=== PATIENT | male | born 1990 | race Caucasian/White ===

== ENCOUNTER 2018-12-30 09:32 | Emergency (ER) | payer OTHER ==
[2018-12-30 09:50] VITALS: BP 146/83; PULSE 89; RESP 18; TEMP 98
--- NOTE | 2018-12-30 10:11 | ED ---
General Adult HPI - General Chief complaint: Recheck/Abnormal Lab/Rx Stated complaint: [facility] - exposure Source: patient, RN notes reviewed Mode of arrival: ambulatory Limitations: no limitations - History of Present Illness Initial comments: 28-year-old male presents to the emergency department to get his blood drawn. Patient used an insulin lancet to collect blood for a glucose check. He states that someone at his work accidentally got stuck with the use lancet. His work wanted him to get blood work done because of this. Patient denies any injuries. Patient has no complaints at this time.Patient has no other complaints at this time including shortness of breath, chest pain, abdominal pain, nausea or vomiting, headache, or visual changes. - Related Data Allergies Allergy/AdvReac Type Severity Reaction Status Date / Time No Known Allergies Allergy Verified 12/30/18 09:50 Review of Systems ROS Statement: Those systems with pertinent positive or pertinent negative responses have been documented in the HPI. ROS Other: All systems not noted in ROS Statement are negative. Past Medical History Past Medical History: Diabetes Mellitus History of Any Multi-Drug Resistant Organisms: None Reported Past Surgical History: No Surgical Hx Reported Past Psychological History: Anxiety, Depression Smoking Status: Current every day smoker Past Alcohol Use History: Rare Past Drug Use History: None Reported General Exam Limitations: no limitations General appearance: alert, in no apparent distress Head exam: Present: atraumatic, normocephalic, normal inspection ENT exam: Present: normal exam, mucous membranes moist Neck exam: Present: normal inspection, full ROM. Absent: tenderness, meningismus, lymphadenopathy Respiratory exam: Present: normal lung sounds bilaterally. Absent: respiratory distress, wheezes, rales, rhonchi, stridor Cardiovascular Exam: Present: regular rate, normal rhythm, normal heart sounds. Absent: systolic murmur, diastolic murmur, rubs, gallop, clicks Neurological exam: Present: alert, oriented X3, CN II-XII intact Psychiatric exam: Present: normal affect, normal mood Course Vital Signs 12/30/18 09:48 Temperature 98.0 F Pulse Rate 89 Respiratory 18 Rate Blood Pressure 146/83 O2 Sat by Pulse 97 Oximetry Medical Decision Making - Medical Decision Making 28-year-old male presents for a blood draw after his insulin needle accidentally poked someone else. Patient was not the one exposed. Hep B, hep C, and HIV panels were drawn. Patient will follow-up with [facility] or primary care. Disposition Clinical Impression: Encounter for blood test Disposition: HOME SELF-CARE Condition: Good Additional Instructions: Please follow up with primary care in 1-2 days. Return here to the emergency department if you have any worsening symptoms. Is patient prescribed a controlled substance at d/c from ED?: No Referrals: Antonino Marrero MD [Primary Care Provider] - 1-2 days Time of Disposition: 10:26
[2018-12-30 17:47] LABS: Hepatitis B Core IgM Non-Reactive (Non-Reactive); Hepatitis C IgG Antibody Non-Reactive (Non-Reactive)
== END 2018-12-30 10:48 | disposition home or self-care (01) ==
LOC: EC 09:32
DX: Z01.89 Encounter for other specified special examinations (principal); F17.200 Nicotine dependence, unspecified, uncomplicated
CPT/HCPCS: 36415; 86701; 86704; 86705; 86803; 87340; 99283

== ENCOUNTER 2022-05-20 14:24 | Inpatient (IN) | payer BC ==
--- NOTE | 2022-05-20 14:50 | ED ---
Psych HPI - General Chief Complaint: Psychiatric Symptoms Stated Complaint: Mental health Eval Time Seen by Provider: 05/20/22 14:38 Source: patient, family Mode of arrival: ambulatory - History of Present Illness Initial Comments: Patient is a 31-year-old male with past medical history of schizotypal disorder who presents to the emergency department for psychiatric evaluation. Patient states he has had suicidal thoughts with plan and intention for the past couple days. He has plan to cut himself with a razor blade. Denies homicidal ideation. Denies auditory and visual hallucinations. Denies alcohol use. Admits to marijuana use. Denies other illicit drug use. Denies fever, chills, shortness of breath, upper respiratory symptoms, chest pain, abdominal pain, nausea, vomiting, and other concerns. Patient takes Abilify and Paxil daily. States his psychiatrist has plan to wean him off Paxil. - Related Data Home Medications Medication Instructions Recorded Confirmed ARIPiprazole [Abilify] 2 mg PO HS 05/20/22 05/20/22 ARIPiprazole [Abilify] 5 mg PO HS 05/20/22 05/20/22 Atorvastatin [Lipitor] 10 mg PO HS 05/20/22 05/20/22 PARoxetine HCL [Paxil] 60 mg PO DAILY 05/20/22 05/20/22 metFORMIN HCL [Glucophage] 500 mg PO HS 05/20/22 05/20/22 Allergies Allergy/AdvReac Type Severity Reaction Status Date / Time No Known Allergies Allergy Verified 05/20/22 16:07 Review of Systems ROS Statement: Those systems with pertinent positive or pertinent negative responses have been documented in the HPI. ROS Other: All systems not noted in ROS Statement are negative. Past Medical History Past Medical History: Diabetes Mellitus History of Any Multi-Drug Resistant Organisms: None Reported Past Surgical History: No Surgical Hx Reported Past Psychological History: Anxiety, Depression Smoking Status: Current every day smoker Past Alcohol Use History: Rare Past Drug Use History: Marijuana General Exam General appearance: alert, in no apparent distress Head exam: Present: atraumatic, normocephalic, normal inspection Eye exam: Present: normal appearance, PERRL, EOMI. Absent: scleral icterus, conjunctival injection, periorbital swelling Respiratory exam: Present: normal lung sounds bilaterally. Absent: respiratory distress, wheezes, rales, rhonchi, stridor Cardiovascular Exam: Present: regular rate, normal rhythm, normal heart sounds. Absent: systolic murmur, diastolic murmur, rubs, gallop, clicks GI/Abdominal exam: Present: soft, normal bowel sounds. Absent: distended, tenderness, guarding, rebound, rigid Neurological exam: Present: alert, oriented X3, CN II-XII intact Psychiatric exam: Present: normal affect, normal mood Skin exam: Present: warm, dry, intact, normal color. Absent: rash Course Vital Signs 05/20/22 05/20/22 14:30 19:24 Temperature 97.7 F 97.7 F Pulse Rate 82 80 Respiratory 18 16 Rate Blood Pressure 128/77 105/71 O2 Sat by Pulse 99 98 Oximetry Medical Decision Making - Medical Decision Making This is a 31-year-old male who presents for psychiatric evaluation and suicidal ideation with plan and intention. Thorough history and examination were performed. Breath alcohol is 0. Patient is cleared medically. He may be evaluated by our psychiatric services. Patient evaluated by psychiatric services. He will be admitted to our inpatient psychiatric floor. Dr. Oliver is my attending. - Lab Data Result diagrams: 05/21/22 13:57 05/21/22 13:57 Lab Results 05/20/22 05/20/22 Range/Units 15:35 20:13 Urine Opiates Screen Not Detected (NotDetected) Ur Oxycodone Screen Not Detected (NotDetected) Urine Methadone Screen Not Detected (NotDetected) Ur Propoxyphene Screen Not Detected (NotDetected) Ur Barbiturates Screen Not Detected (NotDetected) U Tricyclic Antidepress Not Detected (NotDetected) Ur Phencyclidine Scrn Not Detected (NotDetected) Ur Amphetamines Screen Not Detected (NotDetected) U Methamphetamines Scrn Not Detected (NotDetected) U Benzodiazepines Scrn Not Detected (NotDetected) Urine Cocaine Screen Not Detected (NotDetected) U Marijuana (THC) Screen Detected H (NotDetected) Coronavirus (PCR) Not Detected (Not Detectd) Disposition Clinical Impression: Suicidal ideation Disposition: ADMITTED IP TO THIS [facility] Condition: Good Decision Time: 19:07
[2022-05-20 16:08] LABS: Amphetamine Screen,Urine Not Detected (NotDetected); Barbiturate Screen,Urine Not Detected (NotDetected); Benzodiazepines Screen,Urine Not Detected (NotDetected); Cocaine Screen,Urine Not Detected (NotDetected); Methadone Screen, Urine Not Detected (NotDetected); Opiate Screen,Urine Not Detected (NotDetected); Oxycodone Screen, Urine Not Detected (NotDetected); Phencyclidine Screen,Urine Not Detected (NotDetected); Tricyclic Antidepressant,Urine Not Detected (NotDetected); Urn Cannabinoid Scrn Detected (NotDetected)
[2022-05-21] MEDS ORDERED: haloperidoL 5 MG TAB PO PRN
[2022-05-21] MEDS ORDERED: LORazepam 1 MG TAB PO PRN (00:02)
[2022-05-21] MEDS ORDERED: LORazepam 2 MG/ML INJ IM PRN (00:03)
[2022-05-21] MEDS ORDERED: MAG HYDROX/AL HYDROX/SIMETH 30 ML CUP PO PRN (04:00)
[2022-05-21] MEDS ORDERED: ACETAMINOPHEN TAB 325 MG TAB PO PRN (04:00)
[2022-05-21] MEDS ORDERED: HALOPERIDOL LACTATE 5 MG/ML 1 ML VIAL IM PRN (06:00)
[2022-05-21 07:42] LABS: Glucose,Whole Blood 125 mg/dL (70-110)
[2022-05-21] MEDS: NICOTINE 14MG/24HR PATCH TRANSDERM SCH (08:43)
[2022-05-21] MEDS ORDERED: MAGNESIUM HYDROXIDE 2,400 MG/10 ML CUP PO PRN (09:00)
[2022-05-21] MEDS ORDERED: PARoxetine 20 MG TAB PO SCH (09:00)
[2022-05-21] MEDS ORDERED: buPROPion XL 150 MG TAB.ER.24H PO STA (11:53)
[2022-05-21 12:53] LABS: Glucose,Whole Blood 109 mg/dL (70-110)
[2022-05-21 14:39] LABS: Basophils # (A) 0.1 k/uL (0-0.2); Basophils % (A) 1 %; Eosinophils # (A) 0.3 k/uL (0-0.7); Eosinophils % (A) 3 %; HCT 43.9 % (39.0-53.0); HGB 14.7 gm/dL (13.0-17.5); Lymphocytes # (A) 3.2 k/uL (1.0-4.8); Lymphocytes % (A) 34 %; MCHC 33.5 g/dL (31.0-37.0); MCV 86.6 fL (80.0-100.0); Mean Platelet Volume 7.9; Monocytes # (A) 0.3 k/uL (0-1.0); Monocytes % (A) 3 %; Neutrophils # (A) 5.4 k/uL (1.3-7.7); Neutrophils % (A) 57 %; Platelet Count 275 k/uL (150-450); RBC 5.07 m/uL (4.30-5.90); RDW 14.4 % (11.5-15.5); WBC 9.5 k/uL (3.8-10.6)
--- NOTE | 2022-05-21 14:47 | P.HP ---
Psychiatric H&P - . H&P Date: 05/21/22 History & Physical: Allergies Allergy/AdvReac Type Severity Reaction Status Date / Time No Known Allergies Allergy Verified 05/20/22 16:07 Vital Signs Temp 97.6 F 05/21/22 01:41 Pulse 72 05/21/22 01:41 Resp 16 05/21/22 01:41 BP 113/66 05/21/22 01:41 Pulse Ox 98 05/20/22 19:24 FiO2 Intake & Output 05/20/22 05/21/22 05/21/22 18:59 06:59 18:59 Weight 124.738 kg 123 kg Laboratory Last Values WBC 9.5 k/uL (3.8-10.6) 05/21/22 13:57 RBC 5.07 m/uL (4.30-5.90) 05/21/22 13:57 Hgb 14.7 gm/dL (13.0-17.5) 05/21/22 13:57 Hct 43.9 % (39.0-53.0) 05/21/22 13:57 MCV 86.6 fL (80.0-100.0) 05/21/22 13:57 MCH 29.0 pg (25.0-35.0) 05/21/22 13:57 MCHC 33.5 g/dL (31.0-37.0) 05/21/22 13:57 RDW 14.4 % (11.5-15.5) 05/21/22 13:57 Plt Count 275 k/uL (150-450) 05/21/22 13:57 MPV 7.9 05/21/22 13:57 Neutrophils % 57 % 05/21/22 13:57 Lymphocytes % 34 % 05/21/22 13:57 Monocytes % 3 % 05/21/22 13:57 Eosinophils % 3 % 05/21/22 13:57 Basophils % 1 % 05/21/22 13:57 Neutrophils # 5.4 k/uL (1.3-7.7) 05/21/22 13:57 Lymphocytes # 3.2 k/uL (1.0-4.8) 05/21/22 13:57 Monocytes # 0.3 k/uL (0-1.0) 05/21/22 13:57 Eosinophils # 0.3 k/uL (0-0.7) 05/21/22 13:57 Basophils # 0.1 k/uL (0-0.2) 05/21/22 13:57 POC Glucose (mg/dL) 109 mg/dL (70-110) 05/21/22 12:51 POC Glu [employer] ID Phylicia Abdalla 05/21/22 12:51 Urine Opiates Screen Not Detected (NotDetected) 05/20/22 15:35 Ur Oxycodone Screen Not Detected (NotDetected) 05/20/22 15:35 Urine Methadone Screen Not Detected (NotDetected) 05/20/22 15:35 Ur Propoxyphene Screen Not Detected (NotDetected) 05/20/22 15:35 Ur Barbiturates Screen Not Detected (NotDetected) 05/20/22 15:35 U Tricyclic Antidepress Not Detected (NotDetected) 05/20/22 15:35 Ur Phencyclidine Scrn Not Detected (NotDetected) 05/20/22 15:35 Ur Amphetamines Screen Not Detected (NotDetected) 05/20/22 15:35 U Methamphetamines Scrn Not Detected (NotDetected) 05/20/22 15:35 U Benzodiazepines Scrn Not Detected (NotDetected) 05/20/22 15:35 Urine Cocaine Screen Not Detected (NotDetected) 05/20/22 15:35 U Marijuana (THC) Screen Detected (NotDetected) H 05/20/22 15:35 Coronavirus (PCR) Not Detected (Not Detectd) 05/20/22 20:13 05/21/22 14:47 IDENTIFYING DATA: Patient is a single, employed, 31-year-old male with significant history of depression who presents to the hospital with worsening depression and suicidal ideation. HPI: Patient presented to the hospital on 05/20/2022, for worsening depression and suicidal ideation with multiple plans including cutting himself in the wrists, hanging himself, and stabbing himself with a screwdriver. The patient reports that his depression has been worsening over the past few weeks but has been bad over the past year. He reports numerous stressors including financial stressors, work related stressors, as well as concerns regarding his home as his insurance company is not likely to cover his home due to his porch not having rails and tree branches been present over his home. In regards to depressive symptoms, the patient does endorse significant symptoms of depression including a motivation, poor focus, psychomotor slowing, hopelessness, helplessness, anhedonia, and suicidal ideation. The patient denies any suicide attempts in the past. He reports that he did not attempt this time. He reports that the suicidal thoughts started initially in December however has been progressively worse. In regards to other mood symptoms, the patient denies any significant history of bipolar disorder. He reports no manic or hypomanic episodes. In regards to psychotic symptoms, the patient does report a history of hypnagogic and hypnopompic hallucinations or denies any other symptoms. He denies any auditory or visual hallucinations outside of that context and reports no delusions or paranoia. PAST PSYCHIATRIC HISTORY: Patient states that he has been previously diagnosed with "schizotypical disorder." The patient is currently on a home regimen of Abilify and Paxil however has tried Prozac in the past but that caused him to feel more suicidal. Patient denies any previous psychiatric hospitalizations. The patient sees a psychiatrist remotely through his [facility].Patient denies any history of suicide attempts in the past. PMH: Diabetes mellitus type 2 ALLERGIES: NO KNOWN DRUG ALLERGIES CHEMICAL DEPENDENCY HISTORY: The patient reports a half pack per day tobacco use. He denies any illicit drug use. He reports rare alcohol use. He reports using marijuana on weekends. FAMILY PSYCHIATRIC/SUBSTANCE USE HISTORY: The patient reports that his mother has depression and threats. He reports a brother that has bipolar disorder. SOCIAL HISTORY: Patient was born and raised in [place]. He is single, never , and has no children. He is an electrical assembler and graduated college at the [employer]. His hobbies and interests include hockey and video games. He reports that he is raised Buddhism however is nonpracticing. He denies any legal issues. MENTAL STATUS EXAM: General Appearance: Patient appears to be stated age is alert, directable, and attempts to cooperate. Patient appears to have slightly disheveled hygiene and grooming. Obese body habitus. Wearing glasses. Behavior: Patient is seated without any agitated behavior. Eye contact is appropriate. Speech: Patient's speech is fluent and nonpressured. Mood/Affect: Patient reports their mood is depressed, affect is congruent and constricted. Suicidality/Homicidality: Patient denies having any homicidal ideation intent or plan. Patient endorses suicidal ideation. Perceptions: Patient denies any visual hallucinations and denies any auditory hallucinations Though content/process: There is no evidence of any delusional thought content and thought process is linear and goal-directed. Memory and concentration: AOX3, grossly intact for the purposes of this session. Can spell "WORLD" backwards Judgment and insight: Fair STRENGTHS/WEAKNESSES: Strength is that the patient is employed, educated, and has support. Weakness is that the patient has numerous financial stressors. INTELLECT: average IMPRESSIONS: Major depressive disorder, recurrent, severe Tobacco use disorder PLAN: -Patient is admitted under voluntary status to MHU for stabilization of psychiatric symptoms and safety. Patient signed adult voluntary form and medication consent and is placed in patient's chart. -Medications : We will discontinue Paxil and Abilify. We'll start treatment with Zoloft 50 mg by mouth daily for depression/anxiety and Wellbutrin 150 mg by mouth daily for depression. -Ativan and Haldol PRN for agitation/aggression -Patient was counselled on substance abuse and desired to cut back on use -Patient was informed of the risks, benefits and side effects of the medication and patient verbally consented to taking the medications. Patient signed med consent form and was placed in chart. -Internal Medicine consult to perform medical evaluation and physical. -NRT - nicotine patch -SW on board for discharge planning. Encourage patient to participate in groups to work on coping skills.
[2022-05-21 14:52] LABS: ALT 52 U/L (4-49); AST 33 U/L (17-59); African American GFR (CKD) >90 (>60 ml/min/1.73 sqM); Albumin 4.7 g/dL (3.5-5.0); Alkaline Phosphatase 75 U/L (38-126); Anion Gap 8 mmol/L; Blood Urea Nitrogen 15 mg/dL (9-20); Calcium 9.5 mg/dL (8.4-10.2); Carbon Dioxide 29 mmol/L (22-30); Chloride 104 mmol/L (98-107); Glucose 126 mg/dL (74-99); Non-African American GFR(CKD) 89 (>60 ml/min/1.73 sqM); Potassium 4.4 mmol/L (3.5-5.1); Sodium 141 mmol/L (137-145); Total Bilirubin 0.5 mg/dL (0.2-1.3); Total Protein 6.8 g/dL (6.3-8.2)
[2022-05-21 17:59] LABS: Glucose,Whole Blood 100 mg/dL (70-110)
[2022-05-21 20:07] LABS: Glucose,Whole Blood 136 mg/dL (70-110)
[2022-05-21] MEDS: ATORVASTATIN 10 MG TAB PO SCH (20:14)
[2022-05-21] MEDS: metFORMIN 500 MG TAB PO SCH (20:14)
[2022-05-21] MEDS ORDERED: ARIPiprazole 5 MG TAB PO SCH (21:00)
[2022-05-21] MEDS ORDERED: ATORVASTATIN 10 MG TAB PO SCH (21:00)
[2022-05-21] MEDS ORDERED: ARIPiprazole 2 MG TAB PO SCH (21:00)
--- NOTE | 2022-05-22 01:02 | P.CONS ---
History of Present Illness - Reason for Consult Consult date: 05/21/22 - History of Present Illness Patient is a 31-year-old male with a PMH of syncopal disorder, type II DM, and tobacco abuse who presented to the emergency room with complaints of depression and suicidal ideation. The patient was admitted to the mental health and he was seen and evaluated. The patient reports that he has been having worsening depressive thoughts due to his multiple stressors in his life including his soc ial and financial well-being. He reported wanting to cut his wrists and bleed out of breath. He denied any physical complaints at the time of interview. Denies recent chest discomfort, shortness of breath, fever, chills, cough, nausea, vomiting, abdominal pain, diarrhea. Reports smoking half pack of cigarette daily. Also reported smoking marijuana daily. Denied alcohol use. Review of systems: Pertinent positives and negatives as discussed in HPI, a complete review of systems was performed and all other systems are negative. Physical examination: General: non toxic, no distress, appears at stated age, normal weight Derm: no unusual rashes/lesions, no unusual ecchymoses, warm, dry Head: atraumatic, normocephalic, symmetric Eyes: EOMI, no lid lag, anicteric sclera ENT: Nose and ears atraumatic, no thrush, no pharyngeal erythema Neck: trachea midline, supple Mouth: no lip lesion, mucus membranes moist Cardiovascular: S1S2 reg, no murmur, no edema Lungs: CTA bilateral, no rhonchi, no rales , no accessory muscle use Abdominal: soft, nontender to palpation, no guarding Ext: no gross muscle atrophy, no contractures, Neuro: No gross focal neuro deficits noted Psych: Alert, oriented, appropriate affect Assessment/plan Chronic conditions: Type II DM -Continue with home meds Tobacco abuse, marijuana abuse -Advised on importance of cessation Depression and suicidal ideation -As per psychiatry Thank you for allowing us to participate in the care of this patient. We will follow peripherally. Do not hesitate to contact us with questions. Someone can be reached from the [facility] hospitalist group at all hours of the day at [phone]. Past Medical History Past Medical History: Diabetes Mellitus History of Any Multi-Drug Resistant Organisms: None Reported Past Surgical History: No Surgical Hx Reported Past Anesthesia/Blood Transfusion Reactions: No Reported Reaction Past Psychological History: Anxiety, Depression Smoking Status: Current every day smoker Past Alcohol Use History: Rare Past Drug Use History: Marijuana - Past Family History Father Family Medical History: COPD Medications and Allergies Home Medications Medication Instructions Recorded Confirmed Type ARIPiprazole [Abilify] 2 mg PO HS 05/20/22 05/20/22 History ARIPiprazole [Abilify] 5 mg PO HS 05/20/22 05/20/22 History Atorvastatin [Lipitor] 10 mg PO HS 05/20/22 05/20/22 History PARoxetine HCL [Paxil] 60 mg PO DAILY 05/20/22 05/20/22 History metFORMIN HCL [Glucophage] 500 mg PO HS 05/20/22 05/20/22 History Allergies Allergy/AdvReac Type Severity Reaction Status Date / Time No Known Allergies Allergy Verified 05/20/22 16:07 Physical Exam Vitals: Vital Signs Temp Pulse Resp BP 05/21/22 01:41 97.6 F 72 16 113/66 Results CBC & Chem 7: 05/21/22 13:57 05/21/22 13:57 Labs: Abnormal Lab Results - Last 24 Hours (Table) 05/21/22 05/21/22 05/21/22 Range/Units 07:40 13:57 13:57 Glucose 126 H (74-99) mg/dL POC Glucose (mg/dL) 125 H (70-110) mg/dL Hemoglobin A1c 6.5 H (0.0-6.0) % ALT 52 H (4-49) U/L 05/21/22 Range/Units 20:05 Glucose (74-99) mg/dL POC Glucose (mg/dL) 136 H (70-110) mg/dL Hemoglobin A1c (0.0-6.0) % ALT (4-49) U/L
[2022-05-22 02:22] LABS: Chol/HDL Ratio 3.83 Ratio; LDL Cholesterol,Calculated 73.4 mg/dL (0.0-131.0)
--- NOTE | 2022-05-22 03:40 | CONS ---
CONSULTATION REASON FOR CONSULTATION: This is regarding diabetes and other medical issues, requested by Psychiatry. HISTORY OF PRESENT ILLNESS: This is a 31-year-old gentleman with a past medical history of diabetes mellitus type 2, controlled by oral medications, was admitted for psychiatric evaluation. There is no history of any fever, rigors, or chills. There is no history of any headache, loss of consciousness, or seizures. Accu-Chek, current Accu-Chek 125 and 109. PAST MEDICAL HISTORY: Reviewed and includes diabetes mellitus. HOME MEDICATIONS: Reviewed and include Paxil, dose and rest of medications are noted. ALLERGIES: None. FAMILY HISTORY: No history of heart disease or strokes in the family. SOCIAL HISTORY: History of THC and smoking. No alcohol intake. REVIEW OF SYSTEMS: A 14-point review of systems negative except as mentioned earlier. PHYSICAL EXAMINATION: VITAL SIGNS: Pulse 72, blood pressure NTD respirations 16. HEENT: Conjunctivae normal. Oral mucosa moist. NECK: No JVD. CARDIOVASCULAR: S1, S2 muffled. RESPIRATION: Breath sounds diminished at the bases. No rhonchi. No crackles. ABDOMEN: Soft. LEGS: No edema. NERVOUS SYSTEM: Moves all 4 limbs. Cranial nerves II through XII grossly intact. No focal motor or sensory deficit. No signs of cerebellar dysfunction. SKIN: No ulcer. JOINTS: No active deforming arthropathy. LABORATORY DATA: Reviewed. ASSESSMENT: 1. Diabetes mellitus, type 2. 2. Depression. 3. Anxiety. 4. History of tetrahydrocannabinol. RECOMMENDATIONS: This is a 31-year-old gentleman who presented with multiple medical issues. I recommend to continue current Accu-Chek and hemoglobin A1c. Resume the home medications. If the hemoglobin A1c is normal, the Accu-Chek can be discontinued, and diabetic diet. I recommend close followup with the primary physician. MMODL / IJN: [id number] / [id number]
[2022-05-22 07:39] LABS: Glucose,Whole Blood 126 mg/dL (70-110)
[2022-05-22] MEDS: buPROPion XL 150 MG TAB.ER.24H PO SCH (08:47)
[2022-05-22] MEDS ORDERED: SERTRALINE 50 MG TAB PO SCH (09:00)
[2022-05-22] MEDS: NICOTINE 14MG/24HR PATCH TRANSDERM SCH ×2 (09:03→14:54)
--- NOTE | 2022-05-22 11:38 | P.PN ---
Progress Note - Text Progress Note Date: 05/22/22 Interval History: Patient was seen wandering the hallways and was directable and agreeable to speak with business writer in the office. The patient reports that he is feeling better today. He is currently not reporting any suicidal or homicidal ideation, intention, and/or plan. He is not reporting any auditory or visual hallucinations. He is denying any paranoia or other delusions. Patient is not reporting any significant side effects to his medications and has been adherent. He denies any issues regarding his sleep or his appetite. He isn't agreement with further titration of Zoloft today. Mental Status Exam: General Appearance: Patient appears to be stated age is alert, directable, and cooperative. Obese body habitus. Wearing glasses. Behavior: Patient is calmly seated without any agitated behavior. Speech: Patient's speech is fluent and nonpressured. Mood/Affect: Mood is improving mildly, affect is congruent and constricted. Suicidality/Homicidality: Patient denies having any suicidal or homicidal ideation intent or plan. Perceptions: Patient denies any visual hallucinations and denies any auditory hallucinations Though content/process: There is no evidence of any delusional thought content and thought process is linear and goal-directed. Memory and concentration: AOX3, grossly intact for the purposes of this session Judgment and insight: Improving mildly Vital Signs Temp 97.8 F 05/22/22 07:03 Pulse 51 L 05/22/22 07:03 Resp 16 05/22/22 07:03 BP 111/58 05/22/22 07:03 Pulse Ox 98 05/22/22 07:03 FiO2 Laboratory Results - Last 24 Hours 05/21/22 05/21/22 05/21/22 12:51 13:57 13:57 WBC 9.5 RBC 5.07 Hgb 14.7 Hct 43.9 MCV 86.6 MCH 29.0 MCHC 33.5 RDW 14.4 Plt Count 275 MPV 7.9 Neutrophils % 57 Lymphocytes % 34 Monocytes % 3 Eosinophils % 3 Basophils % 1 Neutrophils # 5.4 Lymphocytes # 3.2 Monocytes # 0.3 Eosinophils # 0.3 Basophils # 0.1 Sodium 141 Potassium 4.4 Chloride 104 Carbon Dioxide 29 Anion Gap 8 BUN 15 Creatinine 1.10 Est GFR (CKD-EPI)AfAm >90 Est GFR (CKD-EPI)NonAf 89 Glucose 126 H POC Glucose (mg/dL) 109 POC Glu Legal Stenographer ID Phylicia Abdalla [address]imated [address] Glu mg/dL Hemoglobin A1c Calcium 9.5 Total Bilirubin 0.5 AST 33 ALT 52 H Alkaline Phosphatase 75 Total Protein 6.8 Albumin 4.7 Triglycerides 128.00 Cholesterol 134.00 LDL Cholesterol, Calc 73.4 VLDL Cholesterol, Calc 25.60 HDL Cholesterol 35.00 L Cholesterol/HDL Ratio 3.83 TSH 1.290 05/21/22 05/21/22 05/21/22 13:57 17:57 20:05 WBC RBC Hgb Hct MCV MCH MCHC RDW Plt Count MPV Neutrophils % Lymphocytes % Monocytes % Eosinophils % Basophils % Neutrophils # Lymphocytes # Monocytes # Eosinophils # Basophils # Sodium Potassium Chloride Carbon Dioxide Anion Gap BUN Creatinine Est GFR (CKD-EPI)AfAm Est GFR (CKD-EPI)NonAf Glucose POC Glucose (mg/dL) 100 136 H POC Glu Legal Stenographer ID Christina Bowens Erin [address] Glu mg/dL 139 Hemoglobin A1c 6.5 H Calcium Total Bilirubin AST ALT Alkaline Phosphatase Total Protein Albumin Triglycerides Cholesterol LDL Cholesterol, Calc VLDL Cholesterol, Calc HDL Cholesterol Cholesterol/HDL Ratio TSH 05/22/22 07:36 WBC RBC Hgb Hct MCV MCH MCHC RDW Plt Count MPV Neutrophils % Lymphocytes % Monocytes % Eosinophils % Basophils % Neutrophils # Lymphocytes # Monocytes # Eosinophils # Basophils # Sodium Potassium Chloride Carbon Dioxide Anion Gap BUN Creatinine Est GFR (CKD-EPI)AfAm Est GFR (CKD-EPI)NonAf Glucose POC Glucose (mg/dL) 126 H POC Glu Legal Stenographer ID Linda Schumacher Estimated [address] Glu mg/dL Hemoglobin A1c Calcium Total Bilirubin AST ALT Alkaline Phosphatase Total Protein Albumin Triglycerides Cholesterol LDL Cholesterol, Calc VLDL Cholesterol, Calc HDL Cholesterol Cholesterol/HDL Ratio TSH Assessment Major depressive disorder, recurrent, severe Tobacco use disorder Plan: -Patient continues to meet criteria for inpatient psychiatric admission for symptom stabilization and safety. Patient has signed adult voluntary form and medication consent and was placed in patient's chart. -Medications: Increase Zoloft to 100 mg by mouth daily for depression/anxiety Continue Wellbutrin 150 mg daily for depression -When necessary Ativan and Haldol for agitation/aggression. -NRT - nicotine patch -SW on board for discharge planning. Encouraged the patient to participate in milieu.
[2022-05-22 12:55] LABS: Glucose,Whole Blood 94 mg/dL (70-110)
[2022-05-22 17:29] LABS: Glucose,Whole Blood 96 mg/dL (70-110)
[2022-05-22 20:20] LABS: Glucose,Whole Blood 109 mg/dL (70-110)
[2022-05-22] MEDS: metFORMIN 500 MG TAB PO SCH (20:32)
[2022-05-22] MEDS: ATORVASTATIN 10 MG TAB PO SCH (20:32)
[2022-05-23 06:48] VITALS: RESP 18; TEMP 98.3
[2022-05-23 07:46] LABS: Glucose,Whole Blood 113 mg/dL (70-110)
[2022-05-23] MEDS ORDERED: SERTRALINE 100 MG TAB PO SCH (09:00)
[2022-05-23] MEDS: NICOTINE 14MG/24HR PATCH TRANSDERM SCH (09:51)
[2022-05-23] MEDS: buPROPion XL 150 MG TAB.ER.24H PO SCH (09:52)
[2022-05-23 09:54] VITALS: BP 118/58; PULSE 97
[2022-05-23 10:48] LABS: Appearance,Urine Clear (Clear); Bilirubin,Urine Negative (Negative); Blood,Urine Negative (Negative); Color,Urine Yellow; Glucose,Urine (UA) 3+ (Negative); Ketones,Urine Trace (Negative); Leukocyte Esterase,Urine Negative (Negative); Nitrite,Urine Negative (Negative); Protein,Urine Trace (Negative); Specific Gravity,Urine 1.027 (1.001-1.035)
--- NOTE | 2022-05-23 13:22 | P.DS ---
Providers Date of admission: 05/21/22 00:00 Expected date of discharge: 05/23/22 Attending physician: Dino Uribe MD Consults: 05/21/22 00:02 Consult Physician Routine Consulting Provider: Eunice Armstrong Consult Reason/Comments: H&P and medical Do you want consulting provider notified?: Yes Primary care physician: Faye Luz - Discharge Diagnosis(es) (1) Major depressive disorder Status: Acute Priority: High (2) Tobacco use disorder Status: Chronic Priority: Medium Hospital Course: Admission HPI: Patient is a single, employed, 31-year-old male with significant history of depression who presents to the hospital with worsening depression and suicidal ideation. Patient presented to the hospital on 05/20/2022, for worsening depression and suicidal ideation with multiple plans including cutting himself in the wrists, hanging himself, and stabbing himself with a screwdriver. The patient reports that his depression has been worsening over the past few weeks but has been bad over the past year. He reports numerous stressors including financial stressors, work related stressors, as well as concerns regarding his home as his insurance company is not likely to cover his home due to his porch not having rails and tree branches been present over his home. In regards to depressive symptoms, the patient does endorse significant symptoms of depression including a motivation, poor focus, psychomotor slowing, hopelessness, helplessness, anhedonia, and suicidal ideation. The patient denies any suicide attempts in the past. He reports that he did not attempt thi s time. He reports that the suicidal thoughts started initially in December however has been progressively worse. In regards to other mood symptoms, the patient denies any significant history of bipolar disorder. He reports no manic or hypomanic episodes. In regards to psychotic symptoms, the patient does report a history of hypnagogic and hypnopompic hallucinations or denies any other symptoms. He denies any auditory or visual hallucinations outside of that context and reports no delusions or paranoia. Patient states that he has been previously diagnosed with "schizotypical disorder." The patient is currently on a home regimen of Abilify and Paxil however has tried Prozac in the past but that caused him to feel more suicidal. Patient denies any previous psychiatric hospitalizations. The patient sees a psychiatrist remotely through his [employer] [facility] david.Patient denies any history of suicide attempts in the past. Hospital course: Upon admission to the unit patient was initially endorsing depression and suicidal ideation. Patient was however directable and agreeable to commence treatment. Patient got along well with other patients on the unit and followed unit protocol. Patient was compliant with the medications and denied any side effects throughout hospital course. Patient was started on Zoloft and Wellbutrin for management of depression. Patient spoke of his stressors and engaged in therapy both group and individual. Patient was also seen by medical team for history and physical exam. Throughout the course of the hospitalization patient gradually improved with regards to his mood and sleep and became future oriented with improved insight and judgment. On the day of discharge patient denied any suicidal or homicidal ideations intent or plan denied any auditory or visual hallucinations. Patient endorsed wanting to live for his health and family. The patient denied any access to guns or weapons. Patient denied any paranoia and did not endorse any delusions. Patient does not have a significant history of substance abuse however was counseled on abstaining from all substances including alcohol and marijuana. Patient was also counseled on the medications and need for regular compliance and was encouraged to follow-up with their outpatient appointment for mental health and also for primary care. Prior to discharge a family meeting will be arranged by rn social services to answer any questions and ensure safety upon discharge. Mental status exam: General Appearance: Patient appears to be stated age is alert, pleasant, and cooperative. Patient is in no acute distress and has fair hygiene and grooming Behavior: Patient is calmly seated without any agitated behavior. Speech: Patient's speech is fluent and nonpressured. Mood/Affect: Patient reports their mood is "feeling good", affect is congruent and euthymic. Suicidality/Homicidality: Patient denies having any suicidal or homicidal ideation intent or plan. Perceptions: Patient denies any auditory or visual hallucinations. Though content/process: There is no evidence of any delusional thought content and thought process is linear and goal-directed. Patient is future oriented. Memory and concentration: AOX3, grossly intact for the purposes of this session. Can spell "WORLD" backwards correctly. Judgment and insight: Improved Impression: Major depressive disorder, recurrent, severe Tobacco use disorder Plan: -Continue with discharge today as patient has improved and stabilized psychiatrically and is not currently an imminent threat to himself and/or others. -Continue medications: Wellbutrin XL 150 mg by mouth daily for depression Zoloft 100 mg daily for depression/anxiety -Patient was counseled on the need for medication compliance and appropriate follow-up at mental health and also primary care for medical issues. Patient verbalized understanding and agreed. -Social work to arrange for and conduct family meeting to ensure safety upon discharge and answer any questions/concerns. Social work also to arrange for patients follow up appointments with better help for psychiatric care along with follow up with primary care provider. -Patient counseled on abstaining from recreational drugs and marijuana and alcohol. Was informed/educated on the adverse effects on their physical and mental health. Patient verbally agreed and understood. -Patient was instructed to return to the hospital or seek immediate medical care if their psychiatric or medical symptoms do worsen or reoccur. -Psychoeducation and supportive therapy provided to patient. Risks and benefits of pharmacological treatment versus the risks and benefits of nontreatment weight and discussed. Informed consent discussion held. Common side effects of psychotropics discussed such as, but not limited to headache, GI disturbance, sexual dysfunction, movement disorders, sedation, and orthostatic hypotension. Life threatening and blackbox warnings of prescribed medications also discussed. Potential risks of operating a vehicle or heavy machinery discussed with patient at length. Advised on importance of compliance and a reliable and responsible manner. Patient advised to review FDA consumer labeling of all medications prior to taking. Patient verbalized understanding of potential risks, and agrees with current treatment plan. Patient advised to medically contact physician/emergency personnel if any acute changes in condition occur. Vital Signs Temp 98.3 F 05/23/22 06:48 Pulse 97 05/23/22 09:53 Resp 18 05/23/22 06:48 BP 118/58 05/23/22 09:53 Pulse Ox 98 05/23/22 06:48 FiO2 Laboratory Results WBC 9.5 k/uL (3.8-10.6) 05/21/22 13:57 RBC 5.07 m/uL (4.30-5.90) 05/21/22 13:57 Hgb 14.7 gm/dL (13.0-17.5) 05/21/22 13:57 Hct 43.9 % (39.0-53.0) 05/21/22 13:57 MCV 86.6 fL (80.0-100.0) 05/21/22 13:57 MCH 29.0 pg (25.0-35.0) 05/21/22 13:57 MCHC 33.5 g/dL (31.0-37.0) 05/21/22 13:57 RDW 14.4 % (11.5-15.5) 05/21/22 13:57 Plt Count 275 k/uL (150-450) 05/21/22 13:57 MPV 7.9 05/21/22 13:57 Neutrophils % 57 % 05/21/22 13:57 Lymphocytes % 34 % 05/21/22 13:57 Monocytes % 3 % 05/21/22 13:57 Eosinophils % 3 % 05/21/22 13:57 Basophils % 1 % 05/21/22 13:57 Neutrophils # 5.4 k/uL (1.3-7.7) 05/21/22 13:57 Lymphocytes # 3.2 k/uL (1.0-4.8) 05/21/22 13:57 Monocytes # 0.3 k/uL (0-1.0) 05/21/22 13:57 Eosinophils # 0.3 k/uL (0-0.7) 05/21/22 13:57 Basophils # 0.1 k/uL (0-0.2) 05/21/22 13:57 Sodium 141 mmol/L (137-145) 05/21/22 13:57 Potassium 4.4 mmol/L (3.5-5.1) 05/21/22 13:57 Chloride 104 mmol/L (98-107) 05/21/22 13:57 Carbon Dioxide 29 mmol/L (22-30) 05/21/22 13:57 Anion Gap 8 mmol/L 05/21/22 13:57 BUN 15 mg/dL (9-20) 05/21/22 13:57 Creatinine 1.10 mg/dL (0.66-1.25) 05/21/22 13:57 Est GFR (CKD-EPI)AfAm >90 (>60 ml/min/1.73 sqM) 05/21/22 13:57 Est GFR (CKD-EPI)NonAf 89 (>60 ml/min/1.73 sqM) 05/21/22 13:57 Glucose 126 mg/dL (74-99) H 05/21/22 13:57 POC Glucose (mg/dL) 113 mg/dL (70-110) H 05/23/22 07:44 POC Glu Soaking Pit Operator ID Christina Bowens 05/23/22 07:[address] Glu mg/dL 139 05/21/22 13:57 Hemoglobin A1c 6.5 % (0.0-6.0) H 05/21/22 13:57 Calcium 9.5 mg/dL (8.4-10.2) 05/21/22 13:57 Total Bilirubin 0.5 mg/dL (0.2-1.3) 05/21/22 13:57 AST 33 U/L (17-59) 05/21/22 13:57 ALT 52 U/L (4-49) H 05/21/22 13:57 Alkaline Phosphatase 75 U/L (38-126) 05/21/22 13:57 Total Protein 6.8 g/dL (6.3-8.2) 05/21/22 13:57 Albumin 4.7 g/dL (3.5-5.0) 05/21/22 13:57 Triglycerides 128.00 mg/dL (0.00-149.00) 05/21/22 13:57 Cholesterol 134.00 mg/dL (0.00-200.00) 05/21/22 13:57 LDL Cholesterol, Calc 73.4 mg/dL (0.0-131.0) 05/21/22 13:57 VLDL Cholesterol, Calc 25.60 mg/dL (5.00-40.00) 05/21/22 13:57 HDL Cholesterol 35.00 mg/dL (40.00-60.00) L 05/21/22 13:57 Cholesterol/HDL Ratio 3.83 Ratio 05/21/22 13:57 TSH 1.290 mIU/L (0.465-4.680) 05/21/22 13:57 Urine Color Yellow 05/23/22 10:00 Urine Appearance Clear (Clear) 05/23/22 10:00 Urine pH 6.0 (5.0-8.0) 05/23/22 10:00 Ur Specific [place] 1.027 (1.001-1.035) 05/23/22 10:00 Urine Protein Trace (Negative) H 05/23/22 10:00 Urine Glucose (UA) 3+ (Negative) H 05/23/22 10:00 Urine Ketones Trace (Negative) H 05/23/22 10:00 Urine Blood Negative (Negative) 05/23/22 10:00 Urine Nitrite Negative (Negative) 05/23/22 10:00 Urine Bilirubin Negative (Negative) 05/23/22 10:00 Urine Urobilinogen 2.0 mg/dL (<2.0) 05/23/22 10:00 Ur Leukocyte Esterase Negative (Negative) 05/23/22 10:00 Urine Opiates Screen Not Detected (NotDetected) 05/20/22 15:35 Ur Oxycodone Screen Not Detected (NotDetected) 05/20/22 15:35 Urine Methadone Screen Not Detected (NotDetected) 05/20/22 15:35 Ur Propoxyphene Screen Not Detected (NotDetected) 05/20/22 15:35 Ur Barbiturates Screen Not Detected (NotDetected) 05/20/22 15:35 U Tricyclic Antidepress Not Detected (NotDetected) 05/20/22 15:35 Ur Phencyclidine Scrn Not Detected (NotDetected) 05/20/22 15:35 Ur Amphetamines Screen Not Detected (NotDetected) 05/20/22 15:35 U Methamphetamines Scrn Not Detected (NotDetected) 05/20/22 15:35 U Benzodiazepines Scrn Not Detected (NotDetected) 05/20/22 15:35 Urine Cocaine Screen Not Detected (NotDetected) 05/20/22 15:35 U Marijuana (THC) Screen Detected (NotDetected) H 05/20/22 15:35 Coronavirus (PCR) Not Detected (Not Detectd) 05/20/22 20:13 Allergies Allergy/AdvReac Type Severity Reaction Status Date / Time No Known Allergies Allergy Verified 05/20/22 16:07 Patient Condition at Discharge: Stable Plan - Discharge Summary Discharge Rx Participant: No New Discharge Prescriptions: New buPROPion XL [Wellbutrin XL] 150 mg PO DAILY 30 Days tab Sertraline [Zoloft] 100 mg PO DAILY 30 Days tab Continue Atorvastatin [Lipitor] 10 mg PO HS metFORMIN HCL [Glucophage] 500 mg PO HS Discontinued ARIPiprazole [Abilify] 5 mg PO HS ARIPiprazole [Abilify] 2 mg PO HS PARoxetine HCL [Paxil] 60 mg PO DAILY Discharge Medication List Atorvastatin [Lipitor] 10 mg PO HS 05/20/22 [History] metFORMIN HCL [Glucophage] 500 mg PO HS 05/20/22 [History] Sertraline [Zoloft] 100 mg PO DAILY 30 Days tab 05/23/22 [Rx] buPROPion XL [Wellbutrin XL] 150 mg PO DAILY 30 Days tab 05/23/22 [Rx] Follow up Appointment(s)/Referral(s): [facility] [Other] - 05/24/22 11:00 am Faye Luz [Primary Care Provider] - 1-2 days Patient Instructions/Handouts: Depression (DC) Activity/Diet/Wound Care/Special Instructions: Avoid the use of street drugs and alcohol. Take all prescriptions as prescribed. When you are in need of refills on your medications, please contact your medical provider and/or outpatient psychiatrist to have this done. Please go to scheduled outpatient appointment for aftercare treatment. If symptoms return or become worse, call the crisis line at and/or go to the nearest emergency room for evaluation. Discharge Disposition: HOME SELF-CARE
== END 2022-05-23 12:03 | disposition home or self-care (01) | DRG 885 ==
LOC: EC 14:24 → SUPCPDRO 14:24 → 3MHU 05-21
PROVIDERS: ADMIT Psychiatry & Neurology Psychiatry; ATTEND Psychiatry & Neurology Psychiatry
DX: F33.2 Major depressive disorder, recurrent severe without psychotic features (principal); R45.851 Suicidal ideations; Z20.822 Contact with and (suspected) exposure to COVID-19; F41.9 Anxiety disorder, unspecified; F21 Schizotypal disorder; F17.210 Nicotine dependence, cigarettes, uncomplicated; F12.10 Cannabis abuse, uncomplicated; E11.9 Type 2 diabetes mellitus without complications; Z79.84 Long term (current) use of oral hypoglycemic drugs; Z79.899 Other long term (current) drug therapy; Z81.8 Family history of other mental and behavioral disorders; Z82.5 Family history of asthma and other chronic lower respiratory diseases; Z71.51 Drug abuse counseling and surveillance of drug abuser; Z71.6 Tobacco abuse counseling
CPT/HCPCS: 80053; 80061; 80306; 81003; 82075; 83036; 84443; 85025; 87635; 99285

== ENCOUNTER 2022-06-23 19:21 | Inpatient (IN) | payer BC ==
--- NOTE | 2022-06-24 01:29 | ED ---
Psych HPI - General Chief Complaint: Psychiatric Symptoms Stated Complaint: Mental health Time Seen by Provider: 06/24/22 01:26 Source: patient, RN notes reviewed, old records reviewed Mode of arrival: ambulatory - History of Present Illness Initial Comments: Patient is a 32-year-old male DF for evaluation today. Patient coming in for psychiatric evaluation and treatment patient does have plans to cut he is history of cutting. MD Complaint: suicidal ideation, feels depressed -: days(s) Associated Psychiatric Symptoms: depression, suicidal ideation History of same: Yes Quality: constant, intermittent Improves With: medication Worsens With: none Context: not taking psychiatric medications, significant life stressor Associated Symptoms: denies other symptoms Treatments Prior to Arrival: placed on mental health hold If Self Harm: admits thoughts of self harm - Related Data Home Medications Medication Instructions Recorded Confirmed Atorvastatin [Lipitor] 10 mg PO HS 05/20/22 05/20/22 metFORMIN HCL [Glucophage] 500 mg PO HS 05/20/22 05/20/22 Previous Rx's Medication Instructions Recorded Sertraline [Zoloft] 100 mg PO DAILY 30 Days tab 05/23/22 buPROPion XL [Wellbutrin XL] 150 mg PO DAILY 30 Days tab 05/23/22 Allergies Allergy/AdvReac Type Severity Reaction Status Date / Time No Known Allergies Allergy Verified 06/23/22 20:55 Review of Systems ROS Statement: Those systems with pertinent positive or pertinent negative responses have been documented in the HPI. ROS Other: All systems not noted in ROS Statement are negative. Past Medical History Past Medical History: Diabetes Mellitus History of Any Multi-Drug Resistant Organisms: None Reported Past Surgical History: No Surgical Hx Reported Past Anesthesia/Blood Transfusion Reactions: No Reported Reaction Past Psychological History: Anxiety, Depression Smoking Status: Current every day smoker Past Alcohol Use History: Rare Past Drug Use History: Marijuana - Past Family History Father Family Medical History: COPD General Exam Limitations: no limitations General appearance: anxious Head exam: Present: atraumatic, normocephalic, normal inspection Eye exam: Present: normal appearance, PERRL, EOMI. Absent: scleral icterus, conjunctival injection, periorbital swelling ENT exam: Present: normal exam, mucous membranes moist Neck exam: Present: normal inspection. Absent: tenderness, meningismus, lymphadenopathy Respiratory exam: Present: normal lung sounds bilaterally. Absent: respiratory distress, wheezes, rales, rhonchi, stridor Cardiovascular Exam: Present: regular rate, normal rhythm, normal heart sounds. Absent: systolic murmur, diastolic murmur, rubs, gallop, clicks GI/Abdominal exam: Present: soft, normal bowel sounds. Absent: distended, tenderness, guarding, rebound, rigid Extremities exam: Present: normal inspection, full ROM, normal capillary refill. Absent: tenderness, pedal edema, joint swelling, calf tenderness Back exam: Present: normal inspection Neurological exam: Present: alert, oriented X3, CN II-XII intact Psychiatric exam: Present: normal affect, normal mood Skin exam: Present: warm, dry, intact, normal color. Absent: rash Course Vital Signs 06/23/22 20:52 Temperature 99 F Pulse Rate 92 Respiratory 18 Rate Blood Pressure 131/79 O2 Sat by Pulse 97 Oximetry - Reevaluation(s) Reevaluation #1: 06/24/22 02:28 Medical record reviewed 06/24/22 02:28 Medical clear for psychiatric evaluation Medical Decision Making - Medical Decision Making Physical 32 male seen in [facility] psychiatry, patient deemed necessary for inpatient psychiatric evaluation and treatment Disposition Clinical Impression: Suicidal ideation, Major depressive disorder Disposition: ADMITTED IP TO THIS HOSP Condition: Fair Is patient prescribed a controlled substance at d/c from ED?: No Referrals: Faye Luz [Primary Care Provider] - 1-2 days
[2022-06-24] MEDS ORDERED: LORazepam 1 MG TAB PO PRN (05:17)
[2022-06-24] MEDS ORDERED: MAG HYDROX/AL HYDROX/SIMETH 30 ML CUP PO PRN (05:17)
[2022-06-24] MEDS ORDERED: MAGNESIUM HYDROXIDE 2,400 MG/10 ML CUP PO PRN (05:17)
[2022-06-24] MEDS ORDERED: HALOPERIDOL LACTATE 5 MG/ML 1 ML VIAL IM PRN (05:17)
[2022-06-24] MEDS ORDERED: ACETAMINOPHEN TAB 325 MG TAB PO PRN (05:17)
[2022-06-24] MEDS ORDERED: LORazepam 2 MG/ML INJ IM PRN (05:23)
[2022-06-24] MEDS ORDERED: haloperidoL 5 MG TAB PO PRN (05:24)
[2022-06-24] MEDS ORDERED: SERTRALINE 100 MG TAB PO SCH (09:00)
[2022-06-24] MEDS: NICOTINE 7MG/24HR PATCH TRANSDERM SCH (09:52)
[2022-06-24] MEDS: buPROPion XL 300 MG TAB.ER.24H PO SCH (09:52)
[2022-06-24] MEDS ORDERED: SERTRALINE 50 MG TAB PO STA (11:16)
[2022-06-24] MEDS ORDERED: OLANZapine 2.5 MG TAB PO STA (11:21)
[2022-06-24 12:49] LABS: Glucose,Whole Blood 88 mg/dL (70-110)
--- NOTE | 2022-06-24 12:55 | P.HP ---
Psychiatric H&P - . H&P Date: 06/24/22 History & Physical: Allergies Allergy/AdvReac Type Severity Reaction Status Date / Time No Known Allergies Allergy Verified 06/24/22 05:25 Vital Signs Temp 97.2 F L 06/24/22 06:30 Pulse 87 06/24/22 06:30 Resp 15 06/24/22 06:30 BP 118/66 06/24/22 06:30 Pulse Ox 95 06/24/22 06:30 FiO2 Intake & Output 06/23/22 06/24/22 06/24/22 18:59 06:59 18:59 Weight 117.707 kg Laboratory Last Values POC Glucose (mg/dL) 88 mg/dL (70-110) 06/24/22 12:47 POC Glu Quickbooks Bookkeeper ID Christina Bowens 06/24/22 12:47 Coronavirus (PCR) Not Detected (Not Detectd) 06/24/22 04:15 06/24/22 12:55 IDENTIFYING DATA: Patient is a single, employed, 31-year-old male with significant history of depression who presents to our hospital with worsening depression and suicidal ideation. HPI: Patient presented to the hospital on 06/24/2022, brought into the emergency department by family for suicidal ideation with a plan to cut his wrist. The patient reports that he has been having increased depression and anxiety that has been worsening over the past few weeks. The patient was last admitted onto our psychiatric unit in May 2022 and discharged on a regimen of Wellbutrin and Zoloft. Since his discharge, the patient's Wellbutrin was increased however the patient has been having increased depression and anxiety symptoms. He repo rts feelings of hopelessness, excessive guilt, crying episodes, low energy, decreased appetite, poor sleep, and suicidal ideation. He reports a plan to cut his wrists. He also states that he has not been addressing his hygiene and grooming as often. The patient is not reporting any other mood symptoms and is denying any symptoms of maribel or hypomania. He reports no increased goal- directed activity, mood lability, or grandiosity. The patient denies any auditory or visual hallucinations. He denies any paranoia or other delusions. The patient states that he has been adherent with his medications and reported no significant side effects. He signed himself voluntarily onto the psychiatric unit. PAST PSYCHIATRIC HISTORY: Patient states that he has been diagnosed with depression. The patient has had previous trials of Abilify, Paxil, Prozac, and is currently on a regimen of Wellbutrin and Zoloft. Was last hospitalized on our psychiatric unit in May 2022. The patient is currently open with [facility]. The patient denies any previous attempts at suicide. PMH: Diabetes mellitus type 2 ALLERGIES: NO KNOWN DRUG ALLERGIES CHEMICAL DEPENDENCY HISTORY: The patient reports that he has significantly cut down his tobacco use. He has been previously smoking half pack per day. He denies any illicit drug use, alcohol use, marijuana use. FAMILY PSYCHIATRIC/SUBSTANCE USE HISTORY: The patient reports that his mother has a significant history of depression. Reports that his brother has bipolar disorder. SOCIAL HISTORY: Patient was born and raised in [facility]. He is single, never , and has no children. He graduated college at [email or web address]. He has been working as an electrical and instrument technician. His hobbies and interests include hiking video games. He states that he was raised [employer]ist however is nonpracticing. MENTAL STATUS EXAM: General Appearance: Patient appears to be stated age is alert, directable, and attempts to cooperate. Patient appears to have disheveled hygiene and grooming. Behavior: Patient is seated without any agitated behavior. Eye contact is appropriate. Patient is tearful throughout the interview. Speech: Patient's speech is fluent and nonpressured. Mood/Affect: Patient reports their mood is depressed, affect is congruent and melancholic. Suicidality/Homicidality: Patient denies having any homicidal ideation intent or plan. Patient endorses suicidal ideation with plan to cut his wrists. Perceptions: Patient denies any visual hallucinations and denies any auditory hallucinations Though content/process: There is no evidence of any delusional thought content and thought process is linear and goal-directed. Memory and concentration: AOX3, grossly intact for the purposes of this session. Can spell "WORLD" backwards Judgment and insight: Fair STRENGTHS/WEAKNESSES: Strength is that the patient has a supportive family, is employed, well educated, and has significant support. Weakness includes financ ial stressors INTELLECT: average IMPRESSIONS: Major depressive disorder, recurrent, severe Tobacco use disorder PLAN: -Patient is admitted under voluntary status to MHU for stabilization of psych iatric symptoms and safety. Patient signed adult voluntary form and medication consent and is placed in patient's chart. -Medications : Will start patient on Wellbutrin XL 300 mg by mouth daily for depression Increase Zoloft to 150 mg by mouth daily for depression/anxiety Start Zyprexa 2.5 mg by mouth twice a day for treatment resistant depression -Ativan and Haldol PRN for agitation/aggression -Patient was counselled on substance abuse and desired to cut back on use -Patient was informed of the risks, benefits and side effects of the medication and patient verbally consented to taking the medications. Patient signed med consent form and was placed in chart. -Internal Medicine consult to perform medical evaluation and physical. -NRT - nicotine patch -SW on board for discharge planning. Encourage patient to participate in groups to work on coping skills.
[2022-06-24 19:13] LABS: Glucose,Whole Blood 92 mg/dL (70-110)
[2022-06-24 20:19] LABS: Basophils # (A) 0.1 k/uL (0-0.2); Basophils % (A) 1 %; Eosinophils # (A) 0.3 k/uL (0-0.7); Eosinophils % (A) 3 %; HCT 48.6 % (39.0-53.0); HGB 15.6 gm/dL (13.0-17.5); Lymphocytes # (A) 2.9 k/uL (1.0-4.8); Lymphocytes % (A) 25 %; MCH 28.1 pg (25.0-35.0); MCV 87.9 fL (80.0-100.0); Mean Platelet Volume 8.2; Monocytes # (A) 0.7 k/uL (0-1.0); Monocytes % (A) 6 %; Neutrophils # (A) 7.6 k/uL (1.3-7.7); Neutrophils % (A) 64 %; Platelet Count 259 k/uL (150-450); RBC 5.53 m/uL (4.30-5.90); RDW 13.4 % (11.5-15.5); WBC 11.8 k/uL (3.8-10.6)
[2022-06-24 20:19] LABS: Glucose,Whole Blood 92 mg/dL (70-110)
[2022-06-24] MEDS: OLANZapine 2.5 MG TAB PO SCH (21:31)
[2022-06-24] MEDS: ATORVASTATIN 10 MG TAB PO SCH (21:31)
[2022-06-24] MEDS: metFORMIN 500 MG TAB PO SCH (21:31)
[2022-06-24 22:12] LABS: ALT 27 U/L (4-49); AST 33 U/L (17-59); African American GFR (CKD) >90 (>60 ml/min/1.73 sqM); Albumin 4.6 g/dL (3.5-5.0); Alkaline Phosphatase 89 U/L (38-126); Anion Gap 13 mmol/L; Bilirubin,Unconjugated 0.3 mg/dL (0.0-1.1); Blood Urea Nitrogen 15 mg/dL (9-20); Calcium 9.7 mg/dL (8.4-10.2); Carbon Dioxide 28 mmol/L (22-30); Chloride 102 mmol/L (98-107); Glucose 76 mg/dL (74-99); Non-African American GFR(CKD) 84 (>60 ml/min/1.73 sqM); Potassium 4.1 mmol/L (3.5-5.1); Sodium 143 mmol/L (137-145); Total Bilirubin 0.3 mg/dL (0.2-1.3); Total Protein 7.2 g/dL (6.3-8.2)
[2022-06-25] MEDS: OLANZapine 2.5 MG TAB PO SCH (08:56)
[2022-06-25] MEDS: buPROPion XL 300 MG TAB.ER.24H PO SCH (08:56)
[2022-06-25] MEDS: NICOTINE 7MG/24HR PATCH TRANSDERM SCH (08:57)
[2022-06-25] MEDS ORDERED: SERTRALINE 50 MG TAB PO SCH (09:00)
[2022-06-25 09:32] LABS: Chol/HDL Ratio 3.86 Ratio; LDL Cholesterol,Calculated 75.6 mg/dL (0.0-131.0); VLDL Calculation 19.96 mg/dL (5.00-40.00)
--- NOTE | 2022-06-25 11:31 | P.PN ---
Progress Note - Text Progress Note Date: 06/25/22 Interval History: Patient was seen resting in bed and was directable and agreeable to speak with copy writer in the office. Currently, the patient continues to report significant depression. He reports no significant improvement in his mood. He remains primarily isolative to himself in his room. He has not been interested just his hygiene and grooming. He continues to endorse suicidal ideation and has a plan to hang himself. He does state that he would not engage in this plan while he is admitted on the psychiatric unit at this time. He reports that he has been eating. He has been adherent with his medication and is not endorsing any significant side effects. He is in agreement with the plan to continue to titrate his medications. Mental Status Exam: General Appearance: Patient appears to be stated age is alert, directable, and cooperative. Hygiene and grooming is poor. Behavior: Patient is calmly seated without any agitated behavior. Psychomotor retardation is evident. Speech: Patient's speech is fluent and nonpressured. Mood/Affect: Mood is very depressed. Affect is congruent and withdrawn. Tearful. Suicidality/Homicidality: Patient denies having any suicidal or homicidal ideation intent or plan. Perceptions: Patient denies any visual hallucinations and denies any auditory hallucinations Though content/process: Dysphoric thought process with feelings and thoughts of excessive guilt. Memory and concentration: AOX3, grossly intact for the purposes of this session Judgment and insight: Fair Vital Signs Temp 97.5 F L 06/25/22 06:47 Pulse 55 L 06/25/22 06:47 Resp 16 06/25/22 06:47 BP 108/55 06/25/22 06:47 Pulse Ox 98 06/25/22 06:47 FiO2 Laboratory Results - Last 24 Hours 06/24/22 06/24/22 06/24/22 12:47 18:11 18:15 WBC 11.8 H RBC 5.53 Hgb 15.6 Hct 48.6 MCV 87.9 MCH 28.1 MCHC 32.0 RDW 13.4 Plt Count 259 MPV 8.2 Neutrophils % 64 Lymphocytes % 25 Monocytes % 6 Eosinophils % 3 Basophils % 1 Neutrophils # 7.6 Lymphocytes # 2.9 Monocytes # 0.7 Eosinophils # 0.3 Basophils # 0.1 Sodium Potassium Chloride Carbon Dioxide Anion Gap BUN Creatinine Est GFR (CKD-EPI)AfAm Est GFR (CKD-EPI)NonAf Glucose POC Glucose (mg/dL) 88 92 POC Glu Pumping Plant Operator ID Christina Bowens Stephanie Calcium Total Bilirubin Conjugated Bilirubin Unconjugated Bilirubin Delta Bilirubin AST ALT Alkaline Phosphatase Total Protein Albumin Triglycerides Cholesterol LDL Cholesterol, Calc VLDL Cholesterol, Calc HDL Cholesterol Cholesterol/HDL Ratio TSH 06/24/22 06/24/22 18:15 20:18 WBC RBC Hgb Hct MCV MCH MCHC RDW Plt Count MPV Neutrophils % Lymphocytes % Monocytes % Eosinophils % Basophils % Neutrophils # Lymphocytes # Monocytes # Eosinophils # Basophils # Sodium 143 Potassium 4.1 Chloride 102 Carbon Dioxide 28 Anion Gap 13 BUN 15 Creatinine 1.15 Est GFR (CKD-EPI)AfAm >90 Est GFR (CKD-EPI)NonAf 84 Glucose 76 POC Glucose (mg/dL) 92 POC Glu Pumping Plant Operator ID Fantasma Kasper Calcium 9.7 Total Bilirubin 0.3 Conjugated Bilirubin 0.0 Unconjugated Bilirubin 0.3 Delta Bilirubin 0.0 AST 33 ALT 27 Alkaline Phosphatase 89 Total Protein 7.2 Albumin 4.6 Triglycerides 99.80 Cholesterol 129.00 LDL Cholesterol, Calc 75.6 VLDL Cholesterol, Calc 19.96 HDL Cholesterol 33.40 L Cholesterol/HDL Ratio 3.86 TSH 1.020 Assessment Major depressive disorder, recurrent, severe Tobacco use disorder Plan: -Patient continues to meet criteria for inpatient psychiatric admission for symptom stabilization and safety. Patient has signed adult voluntary form and medication consent and was placed in patient's chart. -Medications: Increase Zoloft to 200 mg by mouth daily for depression/anxiety Increase Zyprexa to 5 mg by mouth twice a day for treatment resistant depression Continue Wellbutrin XL 300 mg by mouth daily for depression -When necessary Ativan and and Haldol for agitation/aggression. -NRT - nicotine patch -SW on board for discharge planning. Encouraged the patient to participate in milieu.
--- NOTE | 2022-06-25 19:14 | P.MDCNMH ---
<Delta Weber - Last Filed: 06/25/22 19:08> History of Present Illness H&P Date: 06/25/22 History of Presenting Illness: Patient is a 31-year-old male with a past medical history of type II non-insulin -dependent diabetes mellitus, hyperlipidemia, and depression. He is currently admitted to the inpatient mental health unit secondary to reports of increased depression and suicidal ideations. We have been consulted for medical management throughout patient's hospitalization. Patient seen and fully evaluated in mental health unit. Patient ambulatory with a steady gait. Patient A and O 4 and was calm and cooperative. He reported he is currently hospitalized because he has had increased depression and thoughts of hurting himself. Patient reports he was having daily suicidal ideations but reports over the past 24 hours of being hospitalized this has improved. Patient reports in addition to increased depression, suicidal ideations, he has also experienced a decreased appetite and fatigue. Patient denies having any recent infections or exposure to known ill contacts, fevers, chills, headache, lightheadedness, dizziness, chest pain, palpitations, shortness of breath, abdominal pain, nausea, vomiting, or experiencing any numbness/tingling/weakness in his extremities. Patient reports long-standing history of depression but denies any history of previous suicidal ideations or attempts. He denies having any visual/tactile/auditory hallucinations. He reports daily nicotine dependence smoking approximately a half a pack a day but denies any other drug or alcohol use. Review of systems: Pertinent positives and negatives as discussed in HPI, a complete review of systems was performed and all other systems are negative. Physical exam: Vital signs reviewed and stable. General: Nontoxic, no distress and appears stated age. Derm: Skin warm and dry, normal coloration for ethnicity. Head: Atraumatic, normocephalic and symmetric. Eyes: EOMs intact, no lid lag, and anicteric sclera Mouth: no lip lesions, mucus membranes moist Cardiovascular: regular rate and rhythm with normal S1S2, no murmur, positive posterior tibial pulses bilaterally, and cap refill < 2 seconds. Lungs: Respirations even, regular, and unlabored on room air. Lungs CTA bilaterally, no rhonchi, no rales, no wheezing, and no accessory muscle usage. Abdominal: soft, nontender to palpation, no guarding, no appreciable organomegaly Ext: ROM intact. No gross muscle atrophy, no edema, no contractures Neuro: Speech clear, face symmetrical and CN II-XII grossly intact with no noted focal neuro deficits Psych: Alert and oriented to person, place, time, and situation. Appropriate and pleasant affect. Assessment and Plan of Care: Depression with suicidal ideations -Treatment per primary admitting psychiatric team. -Maintain safety. -Suicidal precautions Type II [id number] diabetes mellitus Continue home medication regimen with Glucophage. Monitor blood glucose levels before meals and at bedtime. Hyperlipidemia Continue daily medication regimen with atorvastatin 10 mg nightly. Nicotine dependence -Recommend smoking cessation. -Nicotine patch Thank you for allowing us to participate in the care of this pleasant patient. Do not hesitate to contact us with questions. Someone can be reached from the [facility] hospitalist group all hours of the day at [phone] or via [employer]. Past Medical History Past Medical History: Diabetes Mellitus History of Any Multi-Drug Resistant Organisms: None Reported Past Surgical History: No Surgical Hx Reported Past Anesthesia/Blood Transfusion Reactions: No Reported Reaction Past Psychological History: Anxiety, Depression Smoking Status: Current every day smoker Past Alcohol Use History: Rare Past Drug Use History: Marijuana - Past Family History Father Family Medical History: COPD Medications and Allergies Home Medications Medication Instructions Recorded Confirmed Type Atorvastatin [Lipitor] 10 mg PO HS 05/20/22 06/24/22 History metFORMIN HCL [Glucophage] 500 mg PO HS 05/20/22 06/24/22 History Sertraline [Zoloft] 100 mg PO DAILY 30 Days tab 05/23/22 06/24/22 Rx buPROPion XL [Wellbutrin XL] 150 mg PO DAILY 30 Days tab 05/23/22 06/24/22 Rx Allergies Allergy/AdvReac Type Severity Reaction Status Date / Time No Known Allergies Allergy Verified 06/24/22 05:25 Physical Exam Vitals: Vital Signs Temp Pulse Resp BP Pulse Ox 06/25/22 06:47 97.5 F L 55 L 16 108/55 98 Cranial Nerve Examination - Cranial Nerves Cranial Nerve II- Optic: Intact Cranial Nerve III- Oculomotor: Intact Cranial Nerve IV- Trochlear: Intact Cranial Nerve V- Trigeminal: Intact Cranial Nerve - Abducens: Intact Cranial Nerve VII- Facial: Intact Cranial Nerve VIII- Auditory: Intact Cranial Nerve IX- Glossopharyngeal: Intact Cranial Nerve X- Vagus: Intact Cranial Nerve XI- Accessory: Intact Cranial Nerve XII- Hypoglossal: Intact Results CBC & Chem 7: 06/24/22 18:15 06/24/22 18:15 Labs: Abnormal Lab Results - Last 24 Hours (Table) 06/24/22 06/24/22 Range/Units 18:15 18:15 WBC 11.8 H (3.8-10.6) k/uL HDL Cholesterol 33.40 L (40.00-60.00) mg/dL <Rosa Pereira - Last Filed: 06/26/22 07:15> History of Present Illness I reviewed the documentation as provided by the QUINTEN above, who is the original author of this note. I agree with the documented assessment and plan, with the following changes: none Physical Exam Osteopathic Statement: *. No significant issues noted on an osteopathic structural exam other than those noted in the History and Physical/Consult. Vitals: Vital Signs Temp Pulse Resp BP 06/26/22 06:37 97.4 F L 51 L 16 114/59 Results CBC & Chem 7: 06/24/22 18:15 06/24/22 18:15 Labs: Abnormal Lab Results - Last 24 Hours (Table) 06/24/22 Range/Units 18:15 HDL Cholesterol 33.40 L (40.00-60.00) mg/dL
[2022-06-25] MEDS: metFORMIN 500 MG TAB PO SCH (21:18)
[2022-06-25] MEDS: ATORVASTATIN 10 MG TAB PO SCH (21:18)
[2022-06-25] MEDS: OLANZapine 5 MG TAB PO SCH (21:19)
[2022-06-26 07:55] LABS: Glucose,Whole Blood 104 mg/dL (70-110)
[2022-06-26] MEDS: buPROPion XL 300 MG TAB.ER.24H PO SCH (09:17)
[2022-06-26] MEDS: OLANZapine 5 MG TAB PO SCH ×2 (09:17→20:52)
[2022-06-26] MEDS: NICOTINE 7MG/24HR PATCH TRANSDERM SCH (09:18)
[2022-06-26] MEDS: SERTRALINE 100 MG TAB PO SCH (09:18)
--- NOTE | 2022-06-26 11:22 | P.PN ---
Progress Note - Text Progress Note Date: 06/26/22 Interval History: Patient was seen resting in bed and was directable and agreeable to speak with comic writer in the office. Currently, the patient rates his depression 7 out of 10 in severity with 10 being severe. He does report an overall improvement however continues to endorse significant symptoms depression including increased fatigue, low motivation, feelings of hopelessness, and decreased appetite. He does report that his suicidal thoughts have begun to prashanth however continue to be present. He is not reporting any thoughts of hurting others. He denies any auditory or visual hallucinations. He attempts to attend groups. He reports school today's to address his hygiene. Mental Status Exam: General Appearance: Patient appears to be stated age is alert, directable, and cooperative. Hygiene and grooming is poor. Behavior: Patient is calmly seated without any agitated behavior. Psychomotor retardation is evident. Speech: Patient's speech is fluent and nonpressured. Mood/Affect: Mood is depressed. Affect is congruent and withdrawn. Tearful. Suicidality/Homicidality: Patient reports suicidal ideation however denies any homicidal ideation. Perceptions: Patient denies any visual hallucinations and denies any auditory hallucinations Though content/process: Continued dysphoric thought process and low motivation. Memory and concentration: AOX3, grossly intact for the purposes of this session Judgment and insight: Fair Vital Signs Temp 97.4 F L 06/26/22 06:37 Pulse 51 L 06/26/22 06:37 Resp 16 06/26/22 06:37 BP 114/59 06/26/22 06:37 Pulse Ox 98 06/25/22 06:47 FiO2 Laboratory Results - Last 24 Hours 06/26/22 07:54 POC Glucose (mg/dL) 104 POC Glu Financial Sales Advisor ID Bryanna Kincaid Assessment Major depressive disorder, recurrent, severe Tobacco use disorder Plan: -Patient continues to meet criteria for inpatient psychiatric admission for symptom stabilization and safety. Patient has signed adult voluntary form and medication consent and was placed in patient's chart. -Medications: Continue Zoloft 200 mg by mouth daily for depression/anxiety Continue Zyprexa 5 mg by mouth twice a day for treatment resistant depression Increase metformin to 500 mg by mouth twice a day for diabetes and for side effect prophylaxis. Continue Wellbutrin XL 300 mg by mouth daily for depression -When necessary Ativan and and Haldol for agitation/aggression. -NRT - nicotine patch -SW on board for discharge planning. Encouraged the patient to participate in milieu.
[2022-06-26 12:59] LABS: Glucose,Whole Blood 72 mg/dL (70-110)
[2022-06-26] MEDS: metFORMIN 500 MG TAB PO SCH (19:24)
[2022-06-26] MEDS: ATORVASTATIN 10 MG TAB PO SCH (20:52)
[2022-06-27] MEDS: metFORMIN 500 MG TAB PO SCH ×2 (08:10→17:44)
[2022-06-27] MEDS: OLANZapine 5 MG TAB PO SCH ×2 (08:10→20:23)
[2022-06-27] MEDS: buPROPion XL 300 MG TAB.ER.24H PO SCH (08:10)
[2022-06-27] MEDS: SERTRALINE 100 MG TAB PO SCH (08:11)
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
[2022-06-27] MEDS: ATORVASTATIN 10 MG TAB PO SCH (20:23)
[2022-06-28] MEDS: SERTRALINE 100 MG TAB PO SCH (09:30)
[2022-06-28] MEDS: OLANZapine 5 MG TAB PO SCH ×2 (09:31→20:45)
[2022-06-28] MEDS: metFORMIN 500 MG TAB PO SCH ×2 (09:31→17:41)
[2022-06-28] MEDS: buPROPion XL 300 MG TAB.ER.24H PO SCH (09:31)
--- NOTE | 2022-06-28 16:17 | P.PN ---
Progress Note - Text Progress Note Date: 06/28/22 Interval history: Patient was seen asleep in bed and was directable and agreeable to speak with fiction writer on awakening. He appears withdrawn and isolates to his room, with irritable edge. He has not attended any groups so far today despite being prompted by staff, he refuses to attend. At this time, patient denies any suicidal or homicidal ideation, intent or plan. Denies any auditory or visual hallucinations. Patient denies any side effects from the medications and has been compliant with meds. Mental status exam: General Appearance: Patient appears to be stated age, poor hygiene and grooming, long messy hair. Behavior: Patient is laying without any agitated behavior, remains guarded and withdrawn. Speech: Patient's speech is fluent and non-pressured. Mood/Affect: Patient reports their mood is "fine", affect is incongruent and constricted. Suicidality/Homicidality: Patient denies having any homicidal ideation intent or plan. He denies any suicidal ideations, intent or plan. Perceptions: Patient denies any visual hallucinations and denies any auditory hallucinations. Though content/process: There is no evidence of any delusional thought content and thought process is linear and goal-directed. Memory and concentration: AOX3, grossly intact for the purposes of this session. Can spell "WORLD" backwards Judgment and insight: poor Assessment/Plan: Continue with current diagnosis. Patient continues to meet criteria for inpatient psychiatric admission for symptom stabilization and safety. Patient will be maintained on current psychotropic medication regimen. Continue Prozac 20 mg daily for now, with plan to increase to 40 mg daily as tolerated for depression/anxiety. Consider starting Trileptal for mood lability/agitation. Monitor for medication compliance and for any psychotropic medication side effects. Will continue to monitor ongoing response to treatment. Encouraged participation in milieu.
--- NOTE | 2022-06-28 19:33 | P.PN ---
Progress Note - Text Progress Note Date: 06/28/22 Interval history: Patient was seen in the [facility] and was directable and agreeable to speak with typewriter aligner. He reports stable mood. At this time, patient denies any suicidal or homicidal ideation, intent or plan. Denies any auditory or visual hallucinations. Patient denies any side effects from the medications and has been compliant with meds. Mental status exam: General Appearance: Patient appears to be stated age, adequate hygiene. Behavior: Patient is calm without any agitated behavior. Speech: Patient's speech is fluent and non-pressured. Mood/Affect: Patient reports their mood is "pretty good", affect is incongruent and constricted. Suicidality/Homicidality: Patient denies having any homicidal ideation intent or plan. He denies any suicidal ideations, intent or plan. Perceptions: Patient denies any visual hallucinations and denies any auditory hallucinations. Though content/process: There is no evidence of any delusional thought content and thought process is linear and goal-directed. Memory and concentration: AOX3, grossly intact for the purposes of this session. Judgment and insight: improving mildly Assessment/Plan: Continue with current diagnosis. Patient continues to meet criteria for inpatient psychiatric admission for symptom stabilization and safety. Patient will be maintained on current psychotropic medication regimen. Monitor for medication compliance and for any psychotropic medication side effects. Will continue to monitor ongoing response to treatment. Encouraged participation in milieu.
[2022-06-28] MEDS: ATORVASTATIN 10 MG TAB PO SCH (20:45)
[2022-06-29] MEDS: SERTRALINE 100 MG TAB PO SCH (08:41)
[2022-06-29] MEDS: OLANZapine 5 MG TAB PO SCH ×2 (08:41→20:27)
[2022-06-29] MEDS: metFORMIN 500 MG TAB PO SCH ×2 (08:41→17:34)
[2022-06-29] MEDS: buPROPion XL 300 MG TAB.ER.24H PO SCH (08:41)
--- NOTE | 2022-06-29 15:18 | P.PN ---
Progress Note - Text Progress Note Date: 06/29/22 Interval history: Patient was seen in the [facility] attending group and was directable and agreeable to speak with content writer. He reports mood is a "little down" today, endorses anxiety over his discharge and returning home. At this time, patient denies any suicidal or homicidal ideation, intent or plan. Denies any auditory or visual hallucinations. Patient denies any side effects from the medications and has been compliant with meds. We discussed possibly participating in a PHP and he interested in that if there is one available. He was encouraged to discuss his concerns with staff and group leaders. Mental status exam: General Appearance: Patient appears to be stated age, adequate hygiene. Behavior: Patient is calm without any agitated behavior. Speech: Patient's speech is fluent and non-pressured. Mood/Affect: Patient reports their mood is "little down" and "anxious" , affect is incongruent and constricted. Suicidality/Homicidality: Patient denies having any homicidal ideation intent or plan. He denies any suicidal ideations, intent or plan. Perceptions: Patient denies any visual hallucinations and denies any auditory hallucinations. Though content/process: There is no evidence of any delusional thought content and thought process is linear and goal-directed. Memory and concentration: AOX3, grossly intact for the purposes of this session. Judgment and insight: improving mildly Assessment/Plan: Continue with current diagnosis. Patient continues to meet criteria for inpatient psychiatric admission for symptom stabilization and safety. Patient will be maintained on current psychotropic medication regimen. Monitor for medication compliance and for any psychotropic medication side effects. He is interested in participating in a PHP program. Will continue to monitor ongoing response to treatment. Encouraged participation in milieu.
[2022-06-29] MEDS: ATORVASTATIN 10 MG TAB PO SCH (20:27)
[2022-06-30 06:40] VITALS: BP 93/53; PULSE 53; RESP 16; TEMP 97.6
[2022-06-30] MEDS: metFORMIN 500 MG TAB PO SCH (08:12)
[2022-06-30] MEDS: SERTRALINE 100 MG TAB PO SCH (08:12)
[2022-06-30] MEDS: OLANZapine 5 MG TAB PO SCH (08:12)
[2022-06-30] MEDS: buPROPion XL 300 MG TAB.ER.24H PO SCH (08:12)
--- NOTE | 2022-06-30 11:05 | P.DS ---
Providers Date of admission: 06/24/22 05:07 Expected date of discharge: 06/30/22 Attending physician: Dino Uribe MD Consults: 06/24/22 05:17 Consult Physician Routine Consulting Provider: Eunice Armstrong Consult Reason/Comments: for H & P for Medical Follow Up Do you want consulting provider notified?: Yes Primary care physician: Faye Luz - Discharge Diagnosis(es) (1) Major depressive disorder Current Visit: Yes Status: Acute Priority: High (2) Tobacco use disorder Current Visit: Yes Status: Chronic Priority: Medium Hospital Course: Admission HPI: Patient is a single, employed, 31-year-old male with significant history of depression who presents to our hospital with worsening depression and suicidal ideation. HPI: Patient presented to the hospital on 06/24/2022, brought into the emergency department by family for suicidal ideation with a plan to cut his wrist. The patient reports that he has been having increased depression and anxiety that has been worsening over the past few weeks. The patient was last admitted onto our psychiatric unit in May 2022 and discharged on a regimen of Wellbutrin an d Zoloft. Since his discharge, the patient's Wellbutrin was increased however the patient has been having increased depression and anxiety symptoms. He reports feelings of hopelessness, excessive guilt, crying episodes, low energy, decreased appetite, poor sleep, and suicidal ideation. He reports a plan to cut his wrists. He also states that he has not been addressing his hygiene and grooming as often. The patient is not reporting any other mood symptoms and is denying any symptoms of maribel or hypomania. He reports no increased goal- directed activity, mood lability, or grandiosity. The patient denies any auditory or visual hallucinations. He denies any paranoia or other delusions. The patient states that he has been adherent with his medications and reported no significant side effects. He signed himself voluntarily onto the psychiatric unit. Patient states that he has been diagnosed with depression. The patient has had previous trials of Abilify, Paxil, Prozac, and is currently on a regimen of Wellbutrin and Zoloft. Was last hospitalized on our psychiatric unit in May 2022. The patient is currently open with [facility]. The patient denies any previous attempts at suicide. Hospital course: Upon admission to the unit patient was initially presenting as significantly depressed with poor hygiene and grooming, flat affect, and suicidal thoughts. Patient was however directable and agreeable to commence treatment. Patient got along well with other patients on the unit and followed unit protocol. Patient was compliant with the medications and denied any side effects throughout hospital course. Patient was started on Wellbutrin and Zoloft with Zoloft being increased to address his depression/anxiety. Furthermore, Zyprexa was added to augment his medication as the patient was presenting with treatment resistant depression. Patient spoke of his stressors and engaged in therapy both group and individual. Patient was also seen by medical team for history and physical exam. Throughout the course of the hospitalization patient gradually improved with regards to his depression became future oriented with improved insight and judgment. Zyprexa was titrated to a final dose of 5 mg twice a day. On the day of discharge patient denied any suicidal or homicidal ideations intent or plan denied any auditory or visual hallucinations. Patient endorsed wanting to live for his health and family. The patient denied any access to guns or weapons. Patient denied any paranoia and did not endorse any delusions. Patient does not have a significant history of substance abuse however was counseled on abstaining from all substances including alcohol and marijuana. Patient was also counseled on the medications and need for regular compliance and was encouraged to follow-up with their outpatient appointment for mental health and also for primary care. Prior to discharge a family meeting will be arranged by social science instructor to answer any questions and ensure safety upon discharge. Mental status exam: General Appearance: Patient appears to be stated age is alert, pleasant, and cooperative. Patient is in no acute distress and has much improved hygiene and grooming Behavior: Patient is calmly seated without any agitated behavior. Speech: Patient's speech is fluent and nonpressured. Much more spontaneous. Mood/Affect: Patient reports their mood is "much better", affect is congruent and euthymic. Increased range of affect compared to admission. Suicidality/Homicidality: Patient denies having any suicidal or homicidal ideation intent or plan. Perceptions: Patient denies any auditory or visual hallucinations. Though content/process: There is no evidence of any delusional thought content and thought process is linear and goal-directed. Patient is future oriented. Memory and concentration: AOX3, grossly intact for the purposes of this session. Can spell "WORLD" backwards correctly. Judgment and insight: Improved Impression: Major depressive disorder, recurrent, severe Tobacco use disorder Plan: -Continue with discharge today as patient has improved and stabilized psychiatrically and is not currently an imminent threat to himself and/or others. Patient has numerous protective factors including a supportive family, gainful employment, and belief against suicide. 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 -Continue medications: Metformin 500 mg twice a day with meals for diabetes/weight Wellbutrin XL 300 mg by mouth daily for depression Zoloft 200 mg by mouth daily for depression/anxiety Zyprexa 5 mg by mouth twice a day for treatment resistant depression/mentation -Patient was counseled on the need for medication compliance and appropriate follow-up at mental health and also primary care for medical issues. Patient verbalized understanding and agreed. -Social work to arrange for and conduct family meeting to ensure safety upon discharge and answer any questions/concerns. Social work also to arrange for patients follow up appointments with [facility] for psychiatric care along with follow up with primary care provider. -Patient counseled on abstaining from recreational drugs and marijuana and alc ohol. Was informed/educated on the adverse effects on their physical and mental health. Patient verbally agreed and understood. -Patient was instructed to return to the hospital or seek immediate medical care if their psychiatric or medical symptoms do worsen or reoccur. -Psychoeducation and supportive therapy provided to patient. Risks and benefits of pharmacological treatment versus the risks and benefits of nontreatment weight and discussed. Informed consent discussion held. Common side effects of psychotropics discussed such as, but not limited to headache, GI disturbance, sexual dysfunction, movement disorders, sedation, and orthostatic hypotension. Life threatening and blackbox warnings of prescribed medications also discussed. Potential risks of operating a vehicle or heavy machinery discussed with patient at length. Advised on importance of compliance and a reliable and responsible manner. Patient advised to review FDA consumer labeling of all medications prior to taking. Patient verbalized understanding of potential risks, and agrees with current treatment plan. Patient advised to medically contact physician/emergency personnel if any acute changes in condition occur. Laboratory Results WBC 11.8 k/uL (3.8-10.6) H 06/24/22 18:15 RBC 5.53 m/uL (4.30-5.90) 06/24/22 18:15 Hgb 15.6 gm/dL (13.0-17.5) 06/24/22 18:15 Hct 48.6 % (39.0-53.0) 06/24/22 18:15 MCV 87.9 fL (80.0-100.0) 06/24/22 18:15 MCH 28.1 pg (25.0-35.0) 06/24/22 18:15 MCHC 32.0 g/dL (31.0-37.0) 06/24/22 18:15 RDW 13.4 % (11.5-15.5) 06/24/22 18:15 Plt Count 259 k/uL (150-450) 06/24/22 18:15 MPV 8.2 06/24/22 18:15 Neutrophils % 64 % 06/24/22 18:15 Lymphocytes % 25 % 06/24/22 18:15 Monocytes % 6 % 06/24/22 18:15 Eosinophils % 3 % 06/24/22 18:15 Basophils % 1 % 06/24/22 18:15 Neutrophils # 7.6 k/uL (1.3-7.7) 06/24/22 18:15 Lymphocytes # 2.9 k/uL (1.0-4.8) 06/24/22 18:15 Monocytes # 0.7 k/uL (0-1.0) 06/24/22 18:15 Eosinophils # 0.3 k/uL (0-0.7) 06/24/22 18:15 Basophils # 0.1 k/uL (0-0.2) 06/24/22 18:15 Sodium 143 mmol/L (137-145) 06/24/22 18:15 Potassium 4.1 mmol/L (3.5-5.1) 06/24/22 18:15 Chloride 102 mmol/L (98-107) 06/24/22 18:15 Carbon Dioxide 28 mmol/L (22-30) 06/24/22 18:15 Anion Gap 13 mmol/L 06/24/22 18:15 BUN 15 mg/dL (9-20) 06/24/22 18:15 Creatinine 1.15 mg/dL (0.66-1.25) 06/24/22 18:15 Est GFR (CKD-EPI)AfAm >90 (>60 ml/min/1.73 sqM) 06/24/22 18:15 Est GFR (CKD-EPI)NonAf 84 (>60 ml/min/1.73 sqM) 06/24/22 18:15 Glucose 76 mg/dL (74-99) 06/24/22 18:15 POC Glucose (mg/dL) 72 mg/dL (70-110) 06/26/22 12:58 POC Glu Student Ministries Director ID Phylicia Abdalla 06/26/22 12:58 Calcium 9.7 mg/dL (8.4-10.2) 06/24/22 18:15 Total Bilirubin 0.3 mg/dL (0.2-1.3) 06/24/22 18:15 Conjugated Bilirubin 0.0 mg/dL (0.0-0.3) 06/24/22 18:15 Unconjugated Bilirubin 0.3 mg/dL (0.0-1.1) 06/24/22 18:15 Delta Bilirubin 0.0 mg/dL (0.0-0.2) 06/24/22 18:15 AST 33 U/L (17-59) 06/24/22 18:15 ALT 27 U/L (4-49) 06/24/22 18:15 Alkaline Phosphatase 89 U/L (38-126) 06/24/22 18:15 Total Protein 7.2 g/dL (6.3-8.2) 06/24/22 18:15 Albumin 4.6 g/dL (3.5-5.0) 06/24/22 18:15 Triglycerides 99.80 mg/dL (0.00-149.00) 06/24/22 18:15 Cholesterol 129.00 mg/dL (0.00-200.00) 06/24/22 18:15 LDL Cholesterol, Calc 75.6 mg/dL (0.0-131.0) 06/24/22 18:15 VLDL Cholesterol, Calc 19.96 mg/dL (5.00-40.00) 06/24/22 18:15 HDL Cholesterol 33.40 mg/dL (40.00-60.00) L 06/24/22 18:15 Cholesterol/HDL Ratio 3.86 Ratio 06/24/22 18:15 TSH 1.020 mIU/L (0.465-4.680) 06/24/22 18:15 Coronavirus (PCR) Not Detected (Not Detectd) 06/24/22 04:15 Vital Signs Temp 97.6 F 06/30/22 06:32 Pulse 53 L 06/30/22 06:32 Resp 16 06/30/22 06:32 BP 93/53 06/30/22 06:32 Pulse Ox 96 06/28/22 06:08 FiO2 Allergies Allergy/AdvReac Type Severity Reaction Status Date / Time No Known Allergies Allergy Verified 06/24/22 05:25 Patient Condition at Discharge: Stable Plan - Discharge Summary New Discharge Prescriptions: New metFORMIN HCL [Glucophage] 500 mg PO BID-W/MEALS 30 Days tab buPROPion XL [Wellbutrin XL] 300 mg PO DAILY 30 Days tab Sertraline [Zoloft] 200 mg PO DAILY 30 Days tab OLANZapine [ZyPREXA] 5 mg PO BID 30 Days tab Continue Atorvastatin [Lipitor] 10 mg PO HS Discontinued buPROPion XL [Wellbutrin XL] 150 mg PO DAILY 30 Days tab Sertraline [Zoloft] 100 mg PO DAILY 30 Days tab metFORMIN HCL [Glucophage] 500 mg PO HS Discharge Medication List Atorvastatin [Lipitor] 10 mg PO HS 05/20/22 [History] OLANZapine [ZyPREXA] 5 mg PO BID 30 Days tab 06/30/22 [Rx] Sertraline [Zoloft] 200 mg PO DAILY 30 Days tab 06/30/22 [Rx] buPROPion XL [Wellbutrin XL] 300 mg PO DAILY 30 Days tab 06/30/22 [Rx] metFORMIN HCL [Glucophage] 500 mg PO BID-W/MEALS 30 Days tab 06/30/22 [Rx] Follow up Appointment(s)/Referral(s): Faye Luz [Primary Care Provider] - 1-2 days Patient Instructions/Handouts: How to Stop Smoking (DC), Depression (DC), [place] icide Prevention (DC) Activity/Diet/Wound Care/Special Instructions: Avoid the use of street drugs and alcohol. Take all prescriptions as prescribed. When you are in need of refills on your medications, please contact your medical provider and/or outpatient psychiatrist to have this done. Please go to scheduled outpatient appointment for aftercare treatment. If symptoms return or become worse, call the crisis line at and/or go to the nearest emergency room for evaluation. Discharge Disposition: HOME SELF-CARE
== END 2022-06-30 15:53 | disposition home or self-care (01) | DRG 885 ==
LOC: EC 19:21 → 3MHU 06-24 05:07
PROVIDERS: ADMIT Psychiatry & Neurology Psychiatry; ATTEND Psychiatry & Neurology Psychiatry
DX: F33.2 Major depressive disorder, recurrent severe without psychotic features (principal); R45.851 Suicidal ideations; E11.9 Type 2 diabetes mellitus without complications; F17.210 Nicotine dependence, cigarettes, uncomplicated; F41.9 Anxiety disorder, unspecified; Z79.84 Long term (current) use of oral hypoglycemic drugs; Z79.899 Other long term (current) drug therapy; Z81.8 Family history of other mental and behavioral disorders; Z82.5 Family history of asthma and other chronic lower respiratory diseases; Z91.52 Personal history of nonsuicidal self-harm; Z20.822 Contact with and (suspected) exposure to COVID-19
CPT/HCPCS: 80053; 80061; 82075; 82248; 84443; 85025; 87635; 99285

== ENCOUNTER 2023-12-25 18:00 | Emergency (ER) | payer BC ==
[2023-12-25 18:14] VITALS: BP 146/92; PULSE 71; RESP 18; TEMP 98.5
--- NOTE | 2023-12-25 18:37 | ED ---
General Adult HPI - General Chief complaint: Psychiatric Symptoms Stated complaint: Suicidal Time Seen by Provider: 12/25/23 18:06 Source: patient Mode of arrival: ambulatory Limitations: no limitations - History of Present Illness Initial comments: Dictation was produced using Quosis dictation software. please excuse any grammatical, word or spelling errors. Chief Complaint: 33-year-old male presents to the emergency department for suicidal ideation History of Present Illness: Patient 30-year-old male he states that he is depressed. Is been feeling suicidal for the last couple hours. Patient wants to cut his wrist. Denies any medical plaints. He has history of diabetes been taking his diabetes medications as prescribed. Patient denies any homicidal ideation. No visual auditory hallucinations. The ROS documented in this emergency department record has been reviewed and confirmed by me. Those systems with pertinent positive or negative responses have been documented in the HPI. All other systems are other negative and/or noncontributory. - Related Data Home Medications Medication Instructions Recorded Confirmed Atorvastatin [Lipitor] 10 mg PO HS 05/20/22 12/25/23 OLANZapine [ZyPREXA] 2.5 mg PO HS 12/25/23 12/25/23 Spravato 28mg/0.2ml [place] 84 mg MISCELLANE TH 12/25/23 12/25/23 buPROPion XL [Wellbutrin XL] 450 mg PO DAILY 12/25/23 12/25/23 metFORMIN HCL 1,000 mg PO DAILY 12/25/23 12/25/23 Previous Rx's Medication Instructions Recorded Sertraline [Zoloft] 200 mg PO DAILY 30 Days tab 06/30/22 Allergies Allergy/AdvReac Type Severity Reaction Status Date / Time No Known Allergies Allergy Verified 12/25/23 18:42 Review of Systems ROS Statement: Those systems with pertinent positive or pertinent negative responses have been documented in the HPI. ROS Other: All systems not noted in ROS Statement are negative. Past Medical History Past Medical History: Diabetes Mellitus History of Any Multi-Drug Resistant Organisms: None Reported Past Surgical History: No Surgical Hx Reported Past Anesthesia/Blood Transfusion Reactions: No Reported Reaction Past Psychological History: Anxiety, Depression Smoking Status: Current every day smoker Past Alcohol Use History: Rare Past Drug Use History: Marijuana - Past Family History Father Family Medical History: COPD General Exam - General Exam Comments Initial Comments: General: Well-appearing, nontoxic, no acute distress. Head: Normocephalic, atraumatic Eyes: PERRLA, EOMI ENT: Airway patent Chest: Nonlabored breathing Skin: No visual rash, normal skin tone Neuro: Alert and oriented 3 Musculoskeletal: No gross abnormalities Limitations: no limitations Course Vital Signs 12/25/23 18:01 Temperature 98.5 F Pulse Rate 71 Respiratory 18 Rate Blood Pressure 146/92 O2 Sat by Pulse 100 Oximetry Medical Decision Making - Medical Decision Making Was pt. sent in by a medical professional or institution (, PA, INVESTIGATION CLERK, urgent care, hospital, or detention...) When possible be specific @ -No Did you speak to anyone other than the patient for history (EMS, parent, family, police, friend...)? What history was obtained from this source @ -No Did you review nursing and triage notes (agree or disagree)? Why? @ -I reviewed and agree with nursing and triage notes Were old charts reviewed (outside hosp., previous admission, EMS record, old EKG, old radiological studies, urgent care reports/EKG's, detention records)? Report findings @ -No old charts were reviewed Differential Diagnosis (chest pain, altered mental status, abdominal pain women, abdominal pain men, vaginal bleeding, musculoskeletal, weakness, fever, dyspnea, syncope, headache, dizziness, GI bleed, back pain, seizure, CVA, palpatations, mental health)? @ -Differential Mental Health: Depression, anxiety, bipolar, psychosis, schizophrenia, borderline personality, situational depression, adjustment disorder, behavioral disorder, brain tumor, malingering, substance abuse, encephalopathy, medication reaction, dementia, hypothyroidism, degenerative neurologic disorder, lupus.... This is not meant to be all-inclusive list EKG interpreted by me (3pts min.). @ -None done X-rays interpreted by me (1pt min.). @ -None done CT interpreted by me (1pt min.). @ -None done U/S interpreted by me (1pt. min.). @ -None done What testing was considered but not performed or refused? (CT, X-rays, U/S, labs)? Why? @ -None What meds were considered but not given or refused? Why? @ -None Did you discuss the management of the patient with other professionals (professionals i.e. , PA, INVESTIGATION CLERK, lab, RT, psych nurse, social media assistant, cop examiner, teacher, special officer, high risk case manager)? Give summary @ -No Was smoking cessation discussed for >3mins.? @ -No Was critical care preformed (if so, how long)? @ -No Were there social determinants of health that impacted care today? How? (Homelessness, low income, unemployed, alcoholism, drug addiction, transportation, low edu. Level, literacy, decrease access to med. care, care home, rehab)? @ -No Was there de-escalation of care discussed even if they declined (Discuss DNR or withdrawal of care, Hospice)? DNR status @ -No What co-morbidities impacted this encounter? (DM, HTN, Smoking, COPD, CAD, Cancer, CVA, ARF, Chemo, Hep., AIDS, mental health diagnosis, sleep apnea, mor bid obesity)? @ -None Was patient admitted / discharged? Hospital course, mention meds given and route, prescriptions, significant lab abnormalities, going to OR and other pertinent info. @ -33-year-old male presents with depression and suicidal ideation. Vital signs stable. Physical examination is benign. Patient no acute distress. Denies any medical complaints. Patient medically cleared for EPS evaluation EPS evaluated patient recommended discharge. Undiagnosed new problem with uncertain prognosis? @ -No Drug Therapy requiring intensive monitoring for toxicity (Heparin, Nitro, Insul in, Cardizem)? @ -No Were any procedures done? @ -No Diagnosis/symptom? Acute, or Chronic, or Acute on Chronic? Uncomplicated (without systemic symptoms) or Complicated (systemic symptoms)? @ -Suicidal ideation Side effects of treatment? @ -No Exacerbation, Progression, or Severe Exacerbation? @ -No Poses a threat to life or bodily function? How? (Chest pain, [place], [place], pneumonia, PE, COPD, DKA, ARF, appy, cholecystitis, CVA, Diverticulitis, Homicidal, Suicidal, threat to staff... and all critical care pts) @ -yes Disposition Clinical Impression: Depression Disposition: HOME SELF-CARE Condition: Fair Instructions (If sedation given, give patient instructions): Help Prevent Suicide (ED) Is patient prescribed a controlled substance at d/c from ED?: No Referrals: Faye Luz [Primary Care Provider] - 1-2 days Time of Disposition: 20:41
== END 2023-12-25 20:49 | disposition home or self-care (01) ==
LOC: EC 18:00
DX: F32.A Depression, unspecified (principal); E11.9 Type 2 diabetes mellitus without complications; F17.200 Nicotine dependence, unspecified, uncomplicated; F41.9 Anxiety disorder, unspecified; F12.90 Cannabis use, unspecified, uncomplicated; Z79.899 Other long term (current) drug therapy; Z79.84 Long term (current) use of oral hypoglycemic drugs
CPT/HCPCS: 82075; 99285

== ENCOUNTER 2024-07-27 21:16 | Emergency (ER) | payer BC ==
[2024-07-27] MEDS: ACET/COD 300 MG/30 MG STARTER PACK 6 TAB BTL PO STA (22:25)
--- NOTE | 2024-07-27 22:29 | ED ---
General Adult HPI - General Chief complaint: ENT Stated complaint: Earache Time Seen by Provider: 07/27/24 21:48 Source: patient Mode of arrival: ambulatory Limitations: no limitations - History of Present Illness Initial comments: Dictation was produced using [employer] dictation software. please excuse any grammatical, word or spelling errors. Chief Complaint: 33-year-old male with bilateral TMJ pain History of Present Illness: Patient 33-year-old male states that he was at urgent care today for bilateral ear pain. Was seen by urgent care doctor. Diagnosed with bilateral ear infections given antibiotics along with oral steroids. States that he is here in the emergency department because she is having pain. States that his jaw hurts whenever he tries to open and close. States that it does radiate to his bilateral ears. Any fever, chills or night sweats. The ROS documented in this emergency department record has been reviewed and confirmed by me. Those systems with pertinent positive or negative responses have been documented in the HPI. All other systems are other negative and/or noncontributory. - Related Data Home Medications Medication Instructions Recorded Confirmed Atorvastatin [Lipitor] 10 mg PO HS 05/20/22 12/25/23 OLANZapine [ZyPREXA] 2.5 mg PO HS 12/25/23 12/25/23 Spravato 28mg/0.2ml [place] 84 mg MISCELLANE TH 12/25/23 12/25/23 buPROPion XL [Wellbutrin XL] 450 mg PO DAILY 12/25/23 12/25/23 metFORMIN HCL 1,000 mg PO DAILY 12/25/23 12/25/23 Previous Rx's Medication Instructions Recorded Sertraline [Zoloft] 200 mg PO DAILY 30 Days tab 06/30/22 HYDROcodone/APAP 5-325MG [[place] 1 tab PO Q6HR PRN 3 Days #12 tab 07/27/24 5-325] Allergies Allergy/AdvReac Type Severity Reaction Status Date / Time No Known Allergies Allergy Verified 07/27/24 21:38 Review of Systems ROS Statement: Those systems with pertinent positive or pertinent negative responses have been documented in the HPI. ROS Other: All systems not noted in ROS Statement are negative. Past Medical History Past Medical History: Diabetes Mellitus History of Any Multi-Drug Resistant Organisms: None Reported Past Surgical History: No Surgical Hx Reported Past Anesthesia/Blood Transfusion Reactions: No Reported Reaction Past Psychological History: Anxiety, Depression Smoking Status: Current every day smoker Past Alcohol Use History: Rare Past Drug Use History: Marijuana - Past Family History Father Family Medical History: COPD General Exam - General Exam Comments Initial Comments: General: Well-appearing, nontoxic, no acute distress. Head: Normocephalic, atraumatic, palpatory tenderness to the bilateral TMJs, pain reproduced with opening closing the jaw, no mastoid tenderness Eyes: PERRLA, EOMI ENT: Airway patent Chest: Nonlabored breathing Skin: No visual rash, normal skin tone Neuro: Alert and oriented 3 Musculoskeletal: No gross abnormalities Limitations: no limitations Course Vital Signs 07/27/24 21:36 Temperature 98.6 F Pulse Rate 84 Respiratory 16 Rate Blood Pressure 126/80 O2 Sat by Pulse 99 Oximetry Medical Decision Making - Medical Decision Making Was pt. sent in by a medical professional or institution (Dr. PA, RESIDENTIAL ROOFER HELPER, urgent care, hospital, or [facility]...) When possible be specific @ -No Did you speak to anyone other than the patient for history (EMS, parent, family, police, friend...)? What history was obtained from this source @ -No Did you review nursing and triage notes (agree or disagree)? Why? @ -I reviewed and agree with nursing and triage notes Were old charts reviewed (outside hosp., previous admission, EMS record, old EKG, old radiological studies, urgent care reports/EKG's, [facility] records)? Report findings @ -No old charts were reviewed Differential Diagnosis (chest pain, altered mental status, abdominal pain women, abdominal pain men, vaginal bleeding, musculoskeletal, weakness, fever, dyspnea, syncope, headache, dizziness, GI bleed, back pain, seizure, CVA, palpatations, mental health)? @ -Otitis media, otitis externa, TMJ arthritis EKG interpreted by me (3pts min.). @ -None done X-rays interpreted by me (1pt min.). @ -None done CT interpreted by me (1pt min.). @ -None done U/S interpreted by me (1pt. min.). @ -None done What testing was considered but not performed or refused? (CT, X-rays, U/S, labs)? Why? @ -None What meds were considered but not given or refused? Why? @ -None Was smoking cessation discussed for >3mins.? @ -No Were there social determinants of health that impacted care today? How? (Homelessness, low income, unemployed, alcoholism, drug addiction, transportation, low edu. Level, literacy, decrease access to med. care, longterm, rehab)? @ -No Was there de-escalation of care discussed even if they declined (Discuss DNR or withdrawal of care, Hospice)? DNR status @ -No What co-morbidities impacted this encounter? (DM, HTN, Smoking, COPD, CAD, Cancer, CVA, ARF, Chemo, Hep., AIDS, mental health diagnosis, sleep apnea, morbid obesity)? @ -None Was patient admitted / discharged? Hospital course, mention meds given and route, prescriptions, significant lab abnormalities, going to OR and other pertinent info. @ -33-year-old male presents with bilateral TMJ pain. Pain is reproducible at the bedside. Rest of physical examination is benign. Patient given analgesics and discharged home. Advised follow-up with primary care doctor. Did you discuss the management of the patient with other professionals (professionals i.e. , PA, RESIDENTIAL ROOFER HELPER, lab, RT, psych nurse, high school social studies tutor, bass string winder, teacher, protective services officer, showcase trimmer)? Give summary @ -No Was critical care preformed (if so, how long)? @ -No Undiagnosed new problem with uncertain prognosis? @ -No Drug Therapy requiring intensive monitoring for toxicity (Heparin, Nitro, Insulin, Cardizem)? @ -No Were any procedures done? @ -No Diagnosis/symptom? Acute, or Chronic, or Acute on Chronic? Uncomplicated (without systemic symptoms) or Complicated (systemic symptoms)? @ -TMJ pain Side effects of treatment? @ -No Exacerbation, Progression, or Severe Exacerbation? @ -No Poses a threat to life or bodily function? How? (Chest pain, [place], [place], pneumonia, PE, COPD, DKA, ARF, appy, cholecystitis, CVA, Diverticulitis, Homicidal, Suicidal, threat to staff... and all critical care pts) @ -No Disposition Clinical Impression: TMJ arthralgia Disposition: HOME SELF-CARE Condition: Good Prescriptions: HYDROcodone/APAP 5-325MG [[place] 5-325] 1 tab PO Q6HR PRN 3 Days #12 tab PRN Reason: Severe Pain Is patient prescribed a controlled substance at d/c from ED?: Yes Referrals: Faye Luz [Primary Care Provider] - 1-2 days Time of Disposition: 22:28
[2024-07-27 22:33] VITALS: BP 125/86; PULSE 82; RESP 18; TEMP 98.3
== END 2024-07-27 22:36 | disposition home or self-care (01) ==
LOC: EC 21:16
CPT/HCPCS: 99282

== ENCOUNTER 2024-07-29 04:46 | Emergency (ER) | payer BC ==
[2024-07-29 04:53] VITALS: RESP 18
--- NOTE | 2024-07-29 05:13 | ED ---
Recheck HPI - General Chief Complaint: ENT Stated Complaint: Earache Time Seen by Provider: 07/29/24 05:05 Source: patient, RN notes reviewed, old records reviewed Mode of arrival: ambulatory - History of Present Illness Initial Comments: This is a 33-year-old male to the ER for evaluation today. Patient presents today for evaluation regards to reevaluation of jaw pain recent diagnosis of TMJ pain out of pain medication MD Complaint: medication refill request -: days(s) Returns Today for: persistent/worsening pain related to initial visit Symptoms Since Prior Visit: worsening pain Associated Symptoms: none Treatments Prior to Arrival: Given Pain Meds on - Related Data Home Medications Medication Instructions Recorded Confirmed Atorvastatin [Lipitor] 10 mg PO HS 05/20/22 12/25/23 OLANZapine [ZyPREXA] 2.5 mg PO HS 12/25/23 12/25/23 Spravato 28mg/0.2ml [place] 84 mg MISCELLANE TH 12/25/23 12/25/23 buPROPion XL [Wellbutrin XL] 450 mg PO DAILY 12/25/23 12/25/23 metFORMIN HCL 1,000 mg PO DAILY 12/25/23 12/25/23 Previous Rx's Medication Instructions Recorded Sertraline [Zoloft] 200 mg PO DAILY 30 Days tab 06/30/22 HYDROcodone/APAP 5-325MG [[place] 1 tab PO Q6HR PRN 3 Days #12 tab 07/27/24 5-325] Allergies Allergy/AdvReac Type Severity Reaction Status Date / Time No Known Allergies Allergy Verified 07/29/24 04:53 Review of Systems ROS Statement: Those systems with pertinent positive or pertinent negative responses have been documented in the HPI. ROS Other: All systems not noted in ROS Statement are negative. Past Medical History Past Medical History: Diabetes Mellitus History of Any Multi-Drug Resistant Organisms: None Reported Past Surgical History: No Surgical Hx Reported Past Anesthesia/Blood Transfusion Reactions: No Reported Reaction Past Psychological History: Anxiety, Depression Smoking Status: Current every day smoker Past Alcohol Use History: Rare Past Drug Use History: Marijuana - Past Family History Father Family Medical History: COPD General Exam General appearance: alert, in no apparent distress Head exam: Present: atraumatic, normocephalic, normal inspection Eye exam: Present: normal appearance, PERRL, EOMI. Absent: scleral icterus, conjunctival injection, periorbital swelling ENT exam: Present: normal exam, mucous membranes moist Neck exam: Present: normal inspection. Absent: tenderness, meningismus, lymphadenopathy Respiratory exam: Present: normal lung sounds bilaterally. Absent: respiratory distress, wheezes, rales, rhonchi, stridor Cardiovascular Exam: Present: regular rate, normal rhythm, normal heart sounds. Absent: systolic murmur, diastolic murmur, rubs, gallop, clicks GI/Abdominal exam: Present: soft, normal bowel sounds. Absent: distended, tenderness, guarding, rebound, rigid Extremities exam: Present: normal inspection, full ROM, normal capillary refill. Absent: tenderness, pedal edema, joint swelling, calf tenderness Back exam: Present: normal inspection Neurological exam: Present: alert, oriented X3, CN II-XII intact Psychiatric exam: Present: normal affect, normal mood Skin exam: Present: warm, dry, intact, normal color. Absent: rash Course Vital Signs 07/29/24 07/29/24 04:51 05:38 Temperature 98.5 F 98.3 F Pulse Rate 93 81 Respiratory 18 18 Rate Blood Pressure 141/81 130/78 O2 Sat by Pulse 97 98 Oximetry - Reevaluation(s) Reevaluation #1: Medical records reviewed Reevaluation #2: Patient symptoms unchanged Reevaluation #3: Patient informed of results and questions answered Reevaluation #4: Was pt. sent in by a medical professional or institution (, PA, LITERARY AGENT, urgent care, hospital, or [facility]...) When possible be specific @ -no Did you speak to anyone other than the patient for history (EMS, parent, family, police, friend...)? What history was obtained from this source @ -no Did you review nursing and triage notes (agree or disagree)? Why? @ -agree Are old charts reviewed (outside hosp., previous admission, EMS record, old EKG, old radiological studies, urgent care reports/EKG's, [facility] records)? Report findings @ -yes Differential Diagnosis (chest pain, altered mental status, abdominal pain women, abdominal pain men, vaginal bleeding, weakness, fever, dyspnea, syncope, headache, dizziness, GI bleed, back pain, seizure, CVA, palpatations, mental health, musculoskeletal)? @ -prior EKG interpreted by me (3pts min.). @ -no X-rays interpreted by me (1pt min.). @ -no CT interpreted by me (1pt min.). @ -no U/S interpreted by me (1pt. min.). @ -no What testing was considered but not performed or refused? (CT, X-rays, U/S, labs)? Why? @ -none What meds were considered but not given or refused? Why? @ -none Did you discuss the management of the patient with other professionals (professionals i.e. , PA, LITERARY AGENT, lab, RT, psych nurse, nursing home social worker, executive manager, teacher, seaman officer, wrapper caser)? Give summary @ -no Was smoking cessation discussed for >3mins.? @ -no Was critical care preformed (if so, how long)? @ -no Were there social determinants of health that impacted care today? How? (Homelessness, low income, unemployed, alcoholism, drug addiction, transportation, low edu. Level, literacy, decrease access to med. care, senior living, rehab)? @ -none Was there de-escalation of care discussed even if they declined (Discuss DNR or withdrawal of care, Hospice)? DNR status @ -no What co-morbidities impacted this encounter? (DM, HTN, Smoking, COPD, CAD, Cancer, CVA, ARF, Chemo, Hep., AIDS, mental health diagnosis, sleep apnea, morbid obesity)? @ -none Was patient admitted / discharged? Hospital course, mention meds given and route, prescriptions, significant lab abnormalities, going to OR and other pertinent info. @ - 33 male for reevaluation of TMJ pain needing pain medication Discharge Undiagnosed new problem with uncertain prognosis? @ -no Drug Therapy requiring intensive monitoring for toxicity (Heparin, Nitro, Insulin, Cardizem)? @ -no Were any procedures done? @ -no Diagnosis/symptom? @ -TMJ pain Acute, or Chronic, or Acute on Chronic? @ -Acute Uncomplicated (without systemic symptoms) or Complicated (systemic symptoms)? @ -Complicated Side effects of treatment? @ -no Exacerbation, Progression, or Severe Exacerbation? @ -exacerbation Poses a threat to life or bodily function? How? (Chest pain, [place], [place], pneumonia, PE, COPD, DKA, ARF, appy, cholecystitis, CVA, Diverticulitis, Homicidal, Suicidal, threat to staff... and all critical care pts) @ -no Medical Decision Making - Medical Decision Making 33 male for reevaluation of TMJ pain needing pain medication Disposition Clinical Impression: TMJ arthralgia Disposition: HOME SELF-CARE Condition: Fair Instructions (If sedation given, give patient instructions): Temporomandibular Disorder (ED), Earache (ED) Is patient prescribed a controlled substance at d/c from ED?: No Referrals: Faye Luz [Primary Care Provider] - 1-2 days Time of Disposition: 05:10
[2024-07-29] MEDS: traMADol 50 MG STARTER PACK 3 TAB BTL PO STA (05:29)
[2024-07-29] MEDS: IBUPROFEN 600 MG STARTER PACK 4 TAB BTL PO STA (05:30)
[2024-07-29] MEDS: ETODOLAC 400 MG TAB PO ONE (05:31)
[2024-07-29] MEDS: dexAMETHasone 2 MG TAB PO STA (05:31)
[2024-07-29] MEDS: HYDROmorphone 1 MG/ML 1 ML SYRINGE IM STA (05:32)
[2024-07-29 05:39] VITALS: BP 130/78; PULSE 81; TEMP 98.3
== END 2024-07-29 05:38 | disposition home or self-care (01) ==
LOC: EC 04:46
CPT/HCPCS: 99282